=== PATIENT | female | born 1960 | race Caucasian/White ===

== ENCOUNTER 2016-12-13 11:47 | Emergency (ER) | payer MEDICAID ==
--- NOTE | 2016-12-13 14:01 | EDDOCDS ---
Nurse's Notes [facility] Name: Tierra Larsen Age: 56 yrs Sex: Female : 1960 Arrival Date: 12/13/2016 Time: 11:47 Bed TR8 Private MD: BILL GARCIAS Diagnosis: Strain of muscle and tendon of back wall of thorax-WITH HX OF T-SPINE FRACTURE Presentation: 12/13 12:04 Presenting complaint: Patient states: Has a fracture in low part of back which causes jo3 pain. Supposed to have surgery but hasn't scheduled yet. Having pain and the only thing that works is Vicodin. Acute neurological deficits are not present. Mechanism of Injury: No Mechanism of Injury. Adult Sepsis Screening: The patient does not have new or worsening altered mentation. Patient's respiratory rate is less than 22. Systolic blood pressure is greater than 100. Patient has a qSOFA score of 0- Negative Sepsis Screen. Suicide/Homicide risk assessment- the patient denies having any suicidal and/or homicidal ideations and does not present with any other emotional, behavioral or mental health complaints. Status: Patient is not a special services coordinator or dependent. Transition of care: patient was not received from another setting of care. 12:04 Acuity: MISTI Level 4 jo3 12:04 Method Of Arrival: Walkin/Carried/Asstd jo3 Triage Assessment: 12:08 General: Appears in no apparent distress, Behavior is appropriate for age, cooperative. jo3 Pain: Pain. Pain: Pain currently is 10 out of 10 on a pain scale. HIV screening NA for this visit Offered previously. The patient is triaged at the bedside. See Assessment in Nurses Notes section of ED record. Neurological: Level of Consciousness is awake, alert, Oriented to person, place, time. Respiratory: Airway is patent Respiratory effort is even, unlabored. Derm: Skin is pink, warm & dry. MATERIAL LIAISON: 12:08 post menopause jo3 Historical: - Allergies: no known allergies; - Home Meds: 1. albuterol sulfate 90 mcg/actuation Inhl HFAA 1 puff every 4 hours 2. Combivent 18-103 mcg/actuation Inhl aero 3. Lipitor 20 mg Oral tab 1 tab once daily - PMHx: Hypercholesterolemia; COPD; - PSHx: Tonsillectomy; Hip Arthroplasty, Right; Cystectomy; Carpal Tunnel Repair; - Social history: Smoking status: Patient states former smoker of tobacco. No barriers to communication noted, The patient speaks fluent North Korean, Speaks appropriately for age. - Family history: Not pertinent. - : The pt / caregiver states he / she is not on anticoagulants. Home medication list is obtained from the patient. - Exposure Risk Screening:: None identified. Screenin:55 Screening information is obtained from the patient. Fall risk: No risks identified. jo3 Assistance ADL's: requires no assistance with activities of daily living. Abuse/DV Screen: The patient / caregiver reports he/she is: not in a situation that causes fear, pain or injury. Nutritional screening: No deficits noted. Advance Directives: Currently, there is There is no active DNR order. home support is adequate. Assessment: 12:55 General: Appears in no apparent distress, comfortable, Behavior is appropriate for age, jo3 cooperative, pleasant. 13:00 Reassessment: Patient appears in no apparent distress at this time. pt states she is jo3 ready for DC. Medicaid cab requested.. 13:09 General: medicaid cab called per request.. ttb Vital Signs: 11:48 BP 116 / 65; Pulse 66; Resp 18 S; Temp 98.0(O); Pulse Ox 99% on R/A; Weight 68.04 kg gr2 (R); Height 4 ft. 7 in. (139.70 cm) (R); Pain 8/10; 11:48 Body Mass Index 34.86 (68.04 kg, 139.70 cm) gr2 Vitals: 11:48 Log In Time: December 13, 2016 at 11:48. gr2 ED Course: 11:48 Patient visited by Janett Garber. gr2 11:48 BILL GARCIAS is Private Physician. gr2 11:48 Patient moved to Waiting gr2 11:50 Patient visited by Janett Garber. gr2 11:50 Patient moved to Pre RCE gr2 12:06 Triage Initiated jo3 12:10 Patient visited by Megan Soto RN. jo3 12:24 Patient moved to Triage 2 srm 12:33 [facility]ev Mauro [facility]C [facility]. dt4 12:33 Jailene Meyer MD is Attending Physician. dt4 12:33 Patient visited by Bev Mauro PA-C. dt4 12:55 The patient / caregiver is instructed regarding the plan of care and ED course. jo3 12:55 No IV's were initiated during this patient's visit. No procedures done that require jo3 assistance. 13:00 Accompanied by Friend, Patient has correct armband on for positive identification. jo3 13:08 Patient moved to TR2 jb5 13:09 Patient visited by Carol Pandey, GABBI. ttb 13:50 Patient visited by Megan Soto RN. jo3 13:51 Patient name changed from Tierra\S\Marleny\S\Chava\S\ to Tierra\S\M\S\[place]. EDMS 13:53 [facility] Payment Agreement was scanned into [employer] and attached to record. lg 14:00 Patient moved to TR8 jb5 Order Results: There are currently no results for this order. Outcome: 12:54 Discharge ordered by Provider. dt4 12:55 Discharge Assessment: Patient awake, alert and oriented x 3. No cognitive and/or jo3 functional deficits noted. Patient verbalized understanding of disposition instructions. patient administered narcotics - no. The following High Risk Discharge criteria are identified: None. Condition: good. Discharge instructions given to patient, Instructed on discharge instructions, follow up and referral plans. medication usage, Demonstrated understanding of instructions, medications, Pt was receptive of discharge instructions/ teaching. Prescriptions given X 2. No special radiology studies were completed. Property sent home with patient. 14:01 Patient left the ED. jo3 Signatures: [facility] ED[facility] Marisol Barbour, Mike Vásquez RN, Reg Reg lg Elizabeth Richmond, WARRANT SERVER WARRANT SERVER jb5 Megan Soto RN RN joCarol Silva, GABBI SEO ttb Janett Garber gr2 Bev Mauro PA-C PA-C dt4 MTDD
--- NOTE | 2016-12-13 14:01 | EDDOCDS ---
Physician Documentation [facility] Name: Tierra Larsen Age: 56 yrs Sex: Female : 1960 Arrival Date: 12/13/2016 Time: 11:47 Bed TR8 Private MD: BILL GARCIAS Disposition: 12/13/16 12:54 Discharged to Home/Self Care. Impression: Strain of muscle and tendon of back wall of thorax - WITH HX OF T-SPINE FRACTURE. - Condition is Stable. - Discharge Instructions: Back Pain, Adult. - Prescriptions for [place] 5- 325 mg Oral Tablet - take 1 tablet by ORAL route every 6 hours As needed MDD: 4 tabs; 20 tablet. benzonatate 200 mg Oral Capsule - take 1 capsule by ORAL route 3 times per day As needed DO NOT CHEW; 30 capsule. - Medication Reconciliation, Local Pharmacy Hours form. - Follow up: Emergency Department; When: As needed; Reason: Worsening of conditions. Follow up: Private Physician; When: 4 - 5 days; Reason: Wound/Symptom Recheck, Recheck today's complaints, Continuance of care. - Problem is new. - Symptoms are unchanged. Historical: - Allergies: no known allergies; - Home Meds: 1. albuterol sulfate 90 mcg/actuation Inhl HFAA 1 puff every 4 hours 2. Combivent 18-103 mcg/actuation Inhl aero 3. Lipitor 20 mg Oral tab 1 tab once daily - PMHx: Hypercholesterolemia; COPD; - PSHx: Tonsillectomy; Hip Arthroplasty, Right; Cystectomy; Carpal Tunnel Repair; - Social history: Smoking status: Patient states former smoker of tobacco. No barriers to communication noted, The patient speaks fluent Malaysian, Speaks appropriately for age. - Family history: Not pertinent. - : The pt / caregiver states he / she is not on anticoagulants. Home medication list is obtained from the patient. - Exposure Risk Screening:: None identified. 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 7 in. (139.70 cm) (R); Pain 8/10; 11:48 Body Mass Index 34.86 (68.04 kg, 139.70 cm) gr2 MDM: 13:00 ED course: PT HAS DOCUMENTATION FROM S[facility] IN [place] STATING SHE HAS A VERTEBRAL dt4 FRACTURE FROM 2015. SHE WAS TOLD SHE NEEDED TO STOP SMOKING FOR THE SURGEONS TO PERFORM SURGERY. PT STATES OF NOVEMBER 17, 2016, SHE HAS QUIT SMOKING AND HAS NOT YET MADE AN APPT WITH THEM FOR PRE-OP TESTING AND SCHEDULING OF THE SURGERY. PT STATES SHE IS NOW COUGHING AND HE MID-BACK IS HURTING HER MORE THAN USUAL. NO NEW INJURY TO THIS AREA. NO RECENT ILLNESS WITH FEVER, RASH, N/V. . 13:01 Financial registration complete. 13:53 [facility] Payment Agreement was scanned into [employer] and attached to record. Signatures: Mike Humphrey, Kenny Reg Megan Montilla RN RN jo3 Bev Mauro, BRANDAN GIPSON dt4 The chart was reviewed and I authenticate all verbal orders and agree with the evaluation and treatment provided.Attachments: 13:53 [facility] Payment Agreement lg MTDD
--- NOTE | 2016-12-15 15:02 | EDDOCDS ---
Physician Documentation [facility] Name: Tierra Larsen Age: 56 yrs Sex: Female : 1960 Arrival Date: 12/13/2016 Time: 11:47 Bed TR8 Private MD: BILL GARCIAS Disposition: 12/13/16 12:54 Discharged to Home/Self Care. Impression: Strain of muscle and tendon of back wall of thorax - WITH HX OF T-SPINE FRACTURE. - Condition is Stable. - Discharge Instructions: Back Pain, Adult. - Prescriptions for [place] 5- 325 mg Oral Tablet - take 1 tablet by ORAL route every 6 hours As needed MDD: 4 tabs; 20 tablet. benzonatate 200 mg Oral Capsule - take 1 capsule by ORAL route 3 times per day As needed DO NOT CHEW; 30 capsule. - Medication Reconciliation, Local Pharmacy Hours form. - Follow up: Emergency Department; When: As needed; Reason: Worsening of conditions. Follow up: Private Physician; When: 4 - 5 days; Reason: Wound/Symptom Recheck, Recheck today's complaints, Continuance of care. - Problem is new. - Symptoms are unchanged. Historical: - Allergies: no known allergies; - Home Meds: 1. albuterol sulfate 90 mcg/actuation Inhl HFAA 1 puff every 4 hours 2. Combivent 18-103 mcg/actuation Inhl aero 3. Lipitor 20 mg Oral tab 1 tab once daily - PMHx: Hypercholesterolemia; COPD; - PSHx: Tonsillectomy; Hip Arthroplasty, Right; Cystectomy; Carpal Tunnel Repair; - Social history: Smoking status: Patient states former smoker of tobacco. No barriers to communication noted, The patient speaks fluent Martiniquais, Speaks appropriately for age. - Family history: Not pertinent. - : The pt / caregiver states he / she is not on anticoagulants. Home medication list is obtained from the patient. - Exposure Risk Screening:: None identified. 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 7 in. (139.70 cm) (R); Pain 8/10; 11:48 Body Mass Index 34.86 (68.04 kg, 139.70 cm) gr2 MDM: 13:00 ED course: PT HAS DOCUMENTATION FROM [facility] IN [place] STATING SHE HAS A VERTEBRAL dt4 FRACTURE FROM 2015. SHE WAS TOLD SHE NEEDED TO STOP SMOKING FOR THE SURGEONS TO PERFORM SURGERY. PT STATES OF NOVEMBER 17, 2016, SHE HAS QUIT SMOKING AND HAS NOT YET MADE AN APPT WITH THEM FOR PRE-OP TESTING AND SCHEDULING OF THE SURGERY. PT STATES SHE IS NOW COUGHING AND HE MID-BACK IS HURTING HER MORE THAN USUAL. NO NEW INJURY TO THIS AREA. NO RECENT ILLNESS WITH FEVER, RASH, N/V. . 13:01 Financial registration complete. 13:53 [facility] Payment Agreement was scanned into [id number] and attached to record. lg 12/14 07:54 T-Sheet-- Draft Copy was scanned into [employer] and attached to record. gb 07:55 Other: DRUG UTILIZATION REPORT was scanned into [employer] and attached to record. gb Signatures: Crissy Randall, Reg Reg gb Mike Humphrey, Reg Reg lg Megan Soto,RN RN jo3 Bev Mauro, PABlake PABlake dt4 The chart was reviewed and I authenticate all verbal orders and agree with the evaluation and treatment provided.Attachments: 12/13 13:53 [facility] Payment Agreement lg 12/14 07:54 T-Sheet-- Draft Copy gb Chart Complete MTDD
--- NOTE | 2016-12-15 15:02 | EDDOCDS ---
Physician Documentation [facility] Name: Tierra Larsen Age: 56 yrs Sex: Female : 1960 Arrival Date: 12/13/2016 Time: 11:47 Bed TR8 Private MD: BILL GARCIAS Disposition: 12/13/16 12:54 Discharged to Home/Self Care. Impression: Strain of muscle and tendon of back wall of thorax - WITH HX OF T-SPINE FRACTURE. - Condition is Stable. - Discharge Instructions: Back Pain, Adult. - Prescriptions for [place] 5- 325 mg Oral Tablet - take 1 tablet by ORAL route every 6 hours As needed MDD: 4 tabs; 20 tablet. benzonatate 200 mg Oral Capsule - take 1 capsule by ORAL route 3 times per day As needed DO NOT CHEW; 30 capsule. - Medication Reconciliation, Local Pharmacy Hours form. - Follow up: Emergency Department; When: As needed; Reason: Worsening of conditions. Follow up: Private Physician; When: 4 - 5 days; Reason: Wound/Symptom Recheck, Recheck today's complaints, Continuance of care. - Problem is new. - Symptoms are unchanged. Historical: - Allergies: no known allergies; - Home Meds: 1. albuterol sulfate 90 mcg/actuation Inhl HFAA 1 puff every 4 hours 2. Combivent 18-103 mcg/actuation Inhl aero 3. Lipitor 20 mg Oral tab 1 tab once daily - PMHx: Hypercholesterolemia; COPD; - PSHx: Tonsillectomy; Hip Arthroplasty, Right; Cystectomy; Carpal Tunnel Repair; - Social history: Smoking status: Patient states former smoker of tobacco. No barriers to communication noted, The patient speaks fluent Bhutanese, Speaks appropriately for age. - Family history: Not pertinent. - : The pt / caregiver states he / she is not on anticoagulants. Home medication list is obtained from the patient. - Exposure Risk Screening:: None identified. 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 7 in. (139.70 cm) (R); Pain 8/10; 11:48 Body Mass Index 34.86 (68.04 kg, 139.70 cm) gr2 MDM: 13:00 ED course: PT HAS DOCUMENTATION FROM S[facility] IN [place] STATING SHE HAS A VERTEBRAL dt4 FRACTURE FROM 2015. SHE WAS TOLD SHE NEEDED TO STOP SMOKING FOR THE SURGEONS TO PERFORM SURGERY. PT STATES OF NOVEMBER 17, 2016, SHE HAS QUIT SMOKING AND HAS NOT YET MADE AN APPT WITH THEM FOR PRE-OP TESTING AND SCHEDULING OF THE SURGERY. PT STATES SHE IS NOW COUGHING AND HE MID-BACK IS HURTING HER MORE THAN USUAL. NO NEW INJURY TO THIS AREA. NO RECENT ILLNESS WITH FEVER, RASH, N/V. . 13:01 Financial registration complete. 13:53 [facility] Payment Agreement was scanned into [employer] and attached to record. lg 12/14 07:54 T-Sheet-- Draft Copy was scanned into [employer] and attached to record. gb 07:55 Other: DRUG UTILIZATION REPORT was scanned into [employer] and attached to record. gb Signatures: Crissy Randall, Reg Reg gb Mike Humphrey, Reg Reg lg Megan Soto,RN RN jo3 Bev Mauro, PABlake PABlake dt4 The chart was reviewed and I authenticate all verbal orders and agree with the evaluation and treatment provided.Attachments: 12/13 13:53 [facility] Payment Agreement lg 12/14 07:54 T-Sheet-- Draft Copy gb Chart Complete MTDD
--- NOTE | 2016-12-15 15:02 | EDDOCDS ---
Nurse's Notes [facility] Name: Tierra Larsen Age: 56 yrs Sex: Female : 1960 Arrival Date: 12/13/2016 Time: 11:47 Bed TR8 Private MD: BILL GARCIAS Diagnosis: Strain of muscle and tendon of back wall of thorax-WITH HX OF T-SPINE FRACTURE Presentation: 12/13 12:04 Presenting complaint: Patient states: Has a fracture in low part of back which causes jo3 pain. Supposed to have surgery but hasn't scheduled yet. Having pain and the only thing that works is Vicodin. Acute neurological deficits are not present. Mechanism of Injury: No Mechanism of Injury. Adult Sepsis Screening: The patient does not have new or worsening altered mentation. Patient's respiratory rate is less than 22. Systolic blood pressure is greater than 100. Patient has a qSOFA score of 0- Negative Sepsis Screen. Suicide/Homicide risk assessment- the patient denies having any suicidal and/or homicidal ideations and does not present with any other emotional, behavioral or mental health complaints. Status: Patient is not a cashier self service gasoline or dependent. Transition of care: patient was not received from another setting of care. 12:04 Acuity: MISTI Level 4 jo3 12:04 Method Of Arrival: Walkin/Carried/Asstd jo3 Triage Assessment: 12:08 General: Appears in no apparent distress, Behavior is appropriate for age, cooperative. jo3 Pain: Pain. Pain: Pain currently is 10 out of 10 on a pain scale. HIV screening NA for this visit Offered previously. The patient is triaged at the bedside. See Assessment in Nurses Notes section of ED record. Neurological: Level of Consciousness is awake, alert, Oriented to person, place, time. Respiratory: Airway is patent Respiratory effort is even, unlabored. Derm: Skin is pink, warm & dry. 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 albuterol sulfate 90 mcg/actuation Inhl HFAA 1 puff every 4 hours 2. Combivent 18-103 mcg/actuation Inhl aero 3. Lipitor 20 mg Oral tab 1 tab once daily - PMHx: Hypercholesterolemia; COPD; - PSHx: Tonsillectomy; Hip Arthroplasty, Right; Cystectomy; Carpal Tunnel Repair; - Social history: Smoking status: Patient states former smoker of tobacco. No barriers to communication noted, The patient speaks fluent Chinese, Speaks appropriately for age. - Family history: Not pertinent. - : The pt / caregiver states he / she is not on anticoagulants. Home medication list is obtained from the patient. - Exposure Risk Screening:: None identified. Screenin:55 Screening information is obtained from the patient. Fall risk: No risks identified. jo3 Assistance ADL's: requires no assistance with activities of daily living. Abuse/DV Screen: The patient / caregiver reports he/she is: not in a situation that causes fear, pain or injury. Nutritional screening: No deficits noted. Advance Directives: Currently, there is There is no active DNR order. home support is adequate. Assessment: 12:55 General: Appears in no apparent distress, comfortable, Behavior is appropriate for age, jo3 cooperative, pleasant. 13:00 Reassessment: Patient appears in no apparent distress at this time. pt states she is jo3 ready for DC. Medicaid cab requested.. 13:09 General: medicaid cab called per request.. ttb Vital Signs: 11:48 BP 116 / 65; Pulse 66; Resp 18 S; Temp 98.0(O); Pulse Ox 99% on R/A; Weight 68.04 kg gr2 (R); Height 4 ft. 7 in. (139.70 cm) (R); Pain 8/10; 11:48 Body Mass Index 34.86 (68.04 kg, 139.70 cm) gr2 Vitals: 11:48 Log In Time: December 13, 2016 at 11:48. gr2 ED Course: 11:48 Patient visited by Janett Garber. gr2 11:48 BILL GARCIAS is Private Physician. gr2 11:48 Patient moved to Waiting gr2 11:50 Patient visited by Janett Garber. gr2 11:50 Patient moved to Pre RCE gr2 12:06 Triage Initiated jo3 12:10 Patient visited by Megan Soto RN. jo3 12:24 Patient moved to Triage 2 srm 12:33 Bev Mauro PA-C is [facility]. dt4 12:33 Jailene Meyer MD is Attending Physician. dt4 12:33 Patient visited by Bev Mauro PA-C. dt4 12:55 The patient / caregiver is instructed regarding the plan of care and ED course. jo3 12:55 No IV's were initiated during this patient's visit. No procedures done that require jo3 assistance. 13:00 Accompanied by Friend, Patient has correct armband on for positive identification. jo3 13:08 Patient moved to TR2 jb5 13:09 Patient visited by Carol Pandey RN. ttb 13:50 Patient visited by Megan Soto RN. jo3 13:51 Patient name changed from Tierra\S\Marleny\S\Chava\S\ to Tierra\S\M\S\[place]. EDMS 13:53 [facility] Payment Agreement was scanned into [employer] and attached to record. lg 14:00 Patient moved to TR8 [facility] 12/14 07:54 T-Sheet-- Draft Copy was scanned into [employer] and attached to record. gb 07:55 Other: DRUG UTILIZATION REPORT was scanned into [employer] and attached to record. gb Order Results: There are currently no results for this order. Outcome: 12/13 12:54 Discharge ordered by Provider. dt4 12:55 Discharge Assessment: Patient awake, alert and oriented x 3. No cognitive and/or jo3 functional deficits noted. Patient verbalized understanding of disposition instructions. patient administered narcotics - no. The following High Risk Discharge criteria are identified: None. Condition: good. Discharge instructions given to patient, Instructed on discharge instructions, follow up and referral plans. medication usage, Demonstrated understanding of instructions, medications, Pt was receptive of discharge instructions/ teaching. Prescriptions given X 2. No special radiology studies were completed. Property sent home with patient. 14:01 Patient left the ED. jo3 Signatures: Dispatcher [employer] EDMS Marisol Barbour RN RN [facility] Crissy Randall, Reg Reg gb Mike Humphrey, Reg Reg lg Elizabeth Richmond, FUNCTIONAL TESTER FUNCTIONAL TESTER jb5 Megan Soto RN RN jo3 Carol Pandey, GABBI RN ttb Janett Garber gr2 Bev Mauro PA-C PA-C dt4 Chart Complete MTDD
== END 2016-12-13 14:01 | disposition home or self-care (01) ==
LOC: M ED 11:47
DX: M54.9 Dorsalgia, unspecified (principal); Z87.311 Personal history of (healed) other pathological fracture; E78.00 Pure hypercholesterolemia, unspecified; J44.9 Chronic obstructive pulmonary disease, unspecified; Z96.641 Presence of right artificial hip joint; Z87.891 Personal history of nicotine dependence; Z79.899 Other long term (current) drug therapy

== ENCOUNTER → 2017-01-27 | Outpatient (CLI) | payer MEDICAID ==
--- NOTE | 2017-01-27 11:14 | REPMRS ---
Patient History The patient states she has not had a clinical breast exam in over a year. Patient is postmenopausal and is nulliparous. Family history of unknown cancer in father at age 50 or over and unknown cancer in paternal grandfather at age 50 or over. Digital Mammo Screening Bilat: January 27, 2017 - Exam #: [id number] Bilateral CC and MLO view(s) were taken. Technologist: Megan Lugo, Technologist Prior study comparison: September 25, 2015, bilateral digital mammo screening bilat performed at [facility]. September 16, 2014, bilateral digital mammo screening bilat performed at [facility]. 2002, bilateral mammogram performed at [facility]. FINDINGS: The breast tissue is almost entirely fat. There has been no change in the appearance of the mammogram from the prior studies. There is no interval development of dominant mass, architectural distortion, or clustered microcalcification typical of malignancy. ASSESSMENT: BI-RADS/ACR category 1 mammogram. Negative. Recommendation Routine screening mammogram of both breasts in 1 year (for women over age 40). This mammogram was interpreted with the aid of an FDA-approved computer-aided dectection system. Electronically Signed By: Yazan Barboza MD 01/27/17 [id number]
== END ==
LOC: M RAD 09:22
PROVIDERS: ATTEND Internal Medicine
DX: Z12.4 Encounter for screening for malignant neoplasm of cervix (principal)

== ENCOUNTER 2017-03-13 09:32 | Outpatient (RCR) | payer MEDICAID | END 2017-03-16 | LOC: M PT 09:32 | PROVIDERS: ATTEND Orthopaedic Surgery | DX: Z51.89 Encounter for other specified aftercare (principal); M54.5 Low back pain ==

== ENCOUNTER → 2017-03-27 | Outpatient (CLI) | payer MEDICAID ==
[~2017-03-27] MED LIST: diazePAM 5 MG TAB As Ordered ONE; oxyCODONE 5MG TAB As Ordered ONE
--- NOTE | 2017-04-09 02:15 | ECWPNPC ---
PATIENT NAME: LORIE GONZALES : 1960 GENDER: FEMALE VISIT DATE: 03/27/2017 DISCHARGE DATE: 03/27/17 1433 VISIT LOCKED DATE TIME: PHYSICIAN: GUNNER ISRAEL RESOURCE: GUNNER ISRAEL REASON FOR APPOINTMENT 1. BACK HISTORY OF PRESENT ILLNESS FALL RISK SCREENING: SCREENING :NO FALLS IN THE PAST YEAR 56 YEAR OLD FEMALE PATIENT WITH HISTORY OF CHRONIC BACK PAIN. PATIENT DESCRIBES THE PAIN HAVING IT ALL THE TIME WITH A PAIN SCORE OF 9/10 ON TODAY'S VISIT. PATIENT REPORTS THAT SHE ALWAYS HAD BACK PAIN SINCE SHE WAS YOUNG, AND SHE GOT OLDER THE PAIN WORSEN. PATIENT STATES THAT IN 2006 SHE HAD A HIP REPLACEMENT. PATIENT STATES THAT SHE HAS NOT HAD ANY BACK SURGERIES. PATIENT REPORTS THAT WORKING, BENDING, AND STANDING CAUSES HER PAIN TO GO UP. PATIENT STATES THAT SHE HAS RADIATING PAIN THAT GOES DOWN THE FRONT PART OF HER LEG. PATIENT DENIES UNEXPLAINABLE WEIGHT LOSS, FEVER, CHILLS, NEW CHANGES ON HER URINARY OR BOWEL CONTROL. PAIN SCREENING: PATIENT HAS A COMPLAINT OF ACUTE OR CHRONIC PAIN :YES CURRENT MEDICATIONS TAKING ATORVASTATIN CALCIUM 20 MG TABLET 1 TABLET ORALLY ONCE A DAY TAKING ALBUTEROL SULFATE HFA 108 (90 BASE) MCG/ACT AEROSOL SOLUTION 2 PUFFS NEEDED INHALATION EVERY 4 HRS TAKING COMBIVENT MEDICATION LIST REVIEWED AND RECONCILED WITH THE PATIENT PAST MEDICAL HISTORY HIGH CHOLESTEROL KIDNEY STONES ARTHRITIS BACK PAIN BREAST FEEDING: YES ALLERGIES N.K.D.A. SURGICAL HISTORY RIGHT HIP REPLACEMENT 2006 KIDNEY STONES 1998 APPENDECTOMY TEENAGER ? OVARIAN CYSTECTOMY RIGHT 1997 FAMILY HISTORY FATHER: 63 YRS, DIAGNOSED WITH CANCER MOTHER: ALIVE 78 YRS SIBLINGS: ALIVE SOCIAL HISTORY GENERAL: TOBACCO USE ARE YOU A:NONSMOKER RECREATIONAL DRUG USE: YES DRUG USE?YES CAFFEINE: YES CAFFEINE USE?YES HOW OFTEN AND HOW MUCH? 6-7 CUPS [facility] DIRECTIVES HEALTH CARE PROXY?NO WOULD YOU LIKE MORE INFORMATION?NO DO YOU HAVE A DNR?NO WOULD YOU LIKE MORE INFORMATION?NO LIVING WILL?NO WOULD YOU LIKE MORE INFORMATION?NO POWER OF COURTESY CAR DRIVER?NO WOULD YOU LIKE MORE INFORMATION?NO PT STATES SHE SMOKES MARIJUANNA IN PRIVATE TO HELP WITH PAIN. HOSPITALIZATION/MAJOR DIAGNOSTIC PROCEDURE NO HOSPITALIZATION HISTORY. REVIEW OF SYSTEMS CONSTITUTIONAL: ANY CHANGE IN YOUR MEDICAL CONDITION? NO . CHILLS NO . FEVER NO . INFECTION: DO YOU HAVE NEW INFECTIONS? NO . DO YOU HAVE HISTORY OF MRSA? NO . MUSCULOSKELETAL: ANY NEW PATTERNS OF PAIN OR NUMBNESS? YES, LEFT KNEE PAIN AND NUMBNESS. LOWER BACK PAIN . SYTEMIC LUPUS NO . GASTROENTEROLOGY: ANY NEW CHANGE IN BOWEL CONTROL? NO . BARRETTS ESOPHAGUS NO . CIRRHOSIS NO . HEPATITIS NO . LIVER FAILURE NO . ACID REFLUX NO . UNEXPLAINED WEIGHT LOSS NO . GENITOURINARY: ANY NEW CHANGE IN BLADDER CONTROL? NO . IS THERE A CHANCE YOU COULD BE ? NO . HEMATOLOGY/LYMPH: DO YOU TAKE ANY BLOOD THINNERS? (FOR EXAMPLE- COUMADIN, PLAVIX, AGGRENOX, PLATEL, PRADAXA, OR XARELTO) NO . WHEN WAS YOUR LAST DOSE? DATE: TIME: . LOW PLATELET COUNT NO . SICKLE CELL DISEASE NO . VON WILLIEBRANDS NO . FACTOR V LEIDEN NO . THALLASEMIA NO . ANEMIA NO . EASY BRUISING NO . NEUROLOGY: HAVE YOU FALLEN IN THE PAST 6 MONTHS? NO . ANY NEW EXTREMITY NUMBNESS OR WEAKNESS? YES, NUMBNESS TO LEFT KNEE . HEAD INJURY NO . DEMENTIA NO . CEREBRAL PALSY NO . MULTIPLE SCLEROSIS NO . DIZZINESS NO . HEADACHE NO . STROKES NO . VERTIGO NO . CARDIOLOGY: DO YOU HAVE A PACEMAKER OR DEFIBRILLATOR? NO . ANGINA NO . HEART ATTACK NO . HEART SURGERY NO . CONGESTIVE HEART FAILURE/FLUID OVERLOAD NO . CHEST PAIN NO . HIGH BLOOD PRESSURE NO . IRREGULAR HEART BEAT NO . RESPIRATORY: HAVE YOU BEEN SICK IN THE PAST WEEK? NO . FEVER NO . FLU LIKE SYMPTOMS? NO . CPAP NO . BYPAP NO . ASTHMA NO . EMPHYSEMA NO . CHRONIC LUNG DISEASES NO . SHORTNESS OF BREATH ON EXERTION NO . COUGH NO . SNORING NO . INTEGUMENTARY: DO YOU HAVE ANY RASHES OR OPEN SORES? NO . ALLERGIC/IMMUNO: ARE YOU ALLERGIC TO SHELLFISH OR IV DYE? NO . ANY NEW ALLERGIES? NO . PSYCHIATRIC: DO YOU HAVE THOUGHTS OF HURTING YOURSELF OR SOMEONE ELSE? NO . ARE YOU ABUSED, NEGLECTED, OR IN AN UNSAFE ENVIRONMENT? NO . ENDOCRINOLOGY: ARE YOU DIABETIC? NO . THYROID DISORDER NO . OTHER: DO YOU NEED ANY PRESCRIPTIONS? NO . IF YES, PLEASE LIST: ____ . ANY NEW PROBLEMS WITH YOUR MEDICATIONS? NO . WHEN DID YOU LAST EAT? ____ . WHEN DID YOU LAST DRINK? ____ . WHAT DID YOU LAST DRINK? ____ . NAME OF PERSON DRIVING YOU HOME? ____ . DO YOU HAVE ANY OTHER QUESTIONS OR CONCERNS NO . REVIEWED BY: PROVIDER: GUNNER ISRAEL MD . VITAL SIGNS WT 160.4 LBS, HT 57 IN, BMI 34.71 INDEX, BP 136/76 MM HG, HR 52 /MIN, RR 16 /MIN, TEMP 97.4 F, OXYGEN SAT % 96%, SAFE IN ENV? (Y/N) Y, REVIEWED BY: EM. EXAMINATION : PATIENT IS ALERT O X 3 AND COOPERATIVE. THERE IS TENDERNESS IN THE LOW BACK PARASPINAL MUSCLE GROUP WITH BANDS OF TISSUES, RESTRICTION OF MOVEMENT, AND PRESENCE OF TRIGGER POINTS. MRI OF THE LUMBAR SPINE DONE ON 06/06/2016 SHOWS DISC PROTRUSION AND DISC BULGES AT MULTIPLE LEVELS. ASSESSMENTS MYALGIA - M79.1 (PRIMARY) TREATMENT MYALGIA NOTES: WE DISCUSSED SEVERAL ISSUES WITH MS. GONZALES'S PAIN MANAGEMENT CASE. AT THIS TIME THE PATIENT WILL CONTINUE ON THE SAME MEDICATION REGIMEN BEFORE. AFTER EXAMINING THE PATIENT IS A GOOD CANDIDATE FOR A TPI IN THE LOW BACK. WE DISCUSSED THE RISK, BENEFITS, AND ALTERNATIVES AND THE PATIENT WOULD LIKE TO PROCEED. PATIENT WILL BE BOOKED PENDING APPROVAL. PATIENT WILL FOLLOW UP WITH ME IN 4 WEEKS. INSTRUCTIONS WERE GIVEN, QUESTIONS WERE ANSWERED, PATIENT REPORTS UNDERSTANDING AND AGREES WITH THE PLAN. I, JAVIER LAM, DOCUMENTED THE ABOVE INFORMATION ACTING A SCRIBE FOR DR. ISRAEL. I HAVE REVIEWED THE ABOVE DOCUMENT, WRITTEN BY JAVIER SAAVEDRA AND I VERIFY THAT IT IS ACCURATE. DR. BEAL -THANK YOU FOR YOUR KIND REFERRAL OF MS. GONZALES. IF YOU WOULD LIKE TO DISCUSS HER CASE WITH ME, PLEASE CALL ME AT THE PAIN CENTER AT [phone]. OTHERS NOTES: TRIGGER POINT INJECTION MATERIAL WAS PRINTED,TRIGGER POINT INJECTION MATERIAL WAS PRINTED. PREVENTIVE MEDICINE PAIN CLINIC TEACHING: PROCEDURE TEACHING PT ALERT AND ORIENTED. PT ORIENTED TO PAIN CLINIC AND PLAN OF CARE. PROCEDURE CODES FA211 ESTABILISHED PATIENT [facility] FACILITY CHARGE G8730 PAIN ASSESS POS TOOL F/U PLAN DOC G8427 DOC MEDS VERIFIED W/PT OR RE DISPOSITION & COMMUNICATION FOLLOW UP 4 WEEKS ELECTRONICALLY SIGNED BY GUNNER ISRAEL MD ON 04/08/2017 AT 06:03 PM EDT DISCLAIMER : THIS IS A VISIT SUMMARY EXTRACTED FROM THE [employer] CHART. IT IS NOT A COPY OF THE [employer] PROGRESS NOTE. MTDD
== END ==
LOC: M PAIN 12:40
PROVIDERS: ATTEND Anesthesiology
DX: G89.29 Other chronic pain (principal); M79.1 Myalgia; M54.9 Dorsalgia, unspecified; E78.00 Pure hypercholesterolemia, unspecified; M19.90 Unspecified osteoarthritis, unspecified site; R20.2 Paresthesia of skin; Z79.899 Other long term (current) drug therapy

== ENCOUNTER → 2017-03-28 | Outpatient (CLI) | payer MEDICAID ==
[~2017-03-28] MED LIST changes: +BUPIVACAINE HCL 0.25% 10 ML VIAL As Ordered ONE; +BUPIVACAINE HCL 0.25% 30 ML VIAL As Ordered ONE; +TRIAMCINOLONE ACETONIDE SUSP 40 MG/ML VIAL (J3301) As Ordered ONE; -diazePAM 5 MG TAB As Ordered ONE; -oxyCODONE 5MG TAB As Ordered ONE
--- NOTE | 2017-04-05 23:22 | ECWPNPC ---
PATIENT NAME: LORIE GONZALES : 1960 GENDER: FEMALE VISIT DATE: 03/28/2017 DISCHARGE DATE: 03/28/17 1603 VISIT LOCKED DATE TIME: PHYSICIAN: GUNNER ISRAEL RESOURCE: GUNNER ISRAEL REASON FOR APPOINTMENT 1. TPI HISTORY OF PRESENT ILLNESS HISTORY OF PRESENT ILLNESS: PAIN THE PATIENT DESCRIBES THE PAIN... FALL RISK SCREENING: SCREENING :NO FALLS IN THE PAST YEAR CURRENT MEDICATIONS TAKING ATORVASTATIN CALCIUM 20 MG TABLET 1 TABLET ORALLY ONCE A DAY, NOTES: 03-27-17 0800 TAKING ALBUTEROL SULFATE HFA 108 (90 BASE) MCG/ACT AEROSOL SOLUTION 2 PUFFS NEEDED INHALATION EVERY 4 HRS, NOTES: NONE RECENT TAKING COMBIVENT 18-103 MCG/ACT AEROSOL INHALATION 2-3 TIMES DAILY NEDED, NOTES: NONE RECENT MEDICATION LIST REVIEWED AND RECONCILED WITH THE PATIENT PAST MEDICAL HISTORY HIGH CHOLESTEROL KIDNEY STONES ARTHRITIS BACK PAIN ALLERGIES N.K.D.A. REVIEW OF SYSTEMS CONSTITUTIONAL: ANY CHANGE IN YOUR MEDICAL CONDITION? NO . CHILLS NO . FEVER NO . INFECTION: DO YOU HAVE NEW INFECTIONS? NO . DO YOU HAVE HISTORY OF MRSA? NO . MUSCULOSKELETAL: ANY NEW PATTERNS OF PAIN OR NUMBNESS? NO . GASTROENTEROLOGY: ANY NEW CHANGE IN BOWEL CONTROL? NO . GENITOURINARY: ANY NEW CHANGE IN BLADDER CONTROL? NO . IS THERE A CHANCE YOU COULD BE ? NO . HEMATOLOGY/LYMPH: DO YOU TAKE ANY BLOOD THINNERS? (FOR EXAMPLE- COUMADIN, PLAVIX, AGGRENOX, PLATEL, PRADAXA, OR XARELTO) NO . WHEN WAS YOUR LAST DOSE? DATE: TIME: . NEUROLOGY: HAVE YOU FALLEN IN THE PAST 6 MONTHS? NO . ANY NEW EXTREMITY NUMBNESS OR WEAKNESS? NO . CARDIOLOGY: DO YOU HAVE A PACEMAKER OR DEFIBRILLATOR? NO . RESPIRATORY: HAVE YOU BEEN SICK IN THE PAST WEEK? NO . FEVER NO . FLU LIKE SYMPTOMS? NO . COUGH NO . INTEGUMENTARY: DO YOU HAVE ANY RASHES OR OPEN SORES? NO . ALLERGIC/IMMUNO: ARE YOU ALLERGIC TO SHELLFISH OR IV DYE? NO . ANY NEW ALLERGIES? NO . PSYCHIATRIC: DO YOU HAVE THOUGHTS OF HURTING YOURSELF OR SOMEONE ELSE? NO . ARE YOU ABUSED, NEGLECTED, OR IN AN UNSAFE ENVIRONMENT? NO . ENDOCRINOLOGY: ARE YOU DIABETIC? NO . OTHER: DO YOU NEED ANY PRESCRIPTIONS? NO . IF YES, PLEASE LIST: ____ . ANY NEW PROBLEMS WITH YOUR MEDICATIONS? NO . WHEN DID YOU LAST EAT? 03-27-17 7:30 PM . WHEN DID YOU LAST DRINK? 03-28-17 1115 AM . WHAT DID YOU LAST DRINK? BLACK TEA . NAME OF PERSON DRIVING YOU HOME? WALKING HOME . DO YOU HAVE ANY OTHER QUESTIONS OR CONCERNS NO . REVIEWED BY: PROVIDER: . VITAL SIGNS WT 160.0 LBS, HT 57 IN, BMI 34.62 INDEX, BP 133/78 MM HG, HR 69 /MIN, RR 16 /MIN, TEMP 98.3 F, OXYGEN SAT % 98%, NA INITIALS TL 1334, REVIEWED BY: CM. ASSESSMENTS MYALGIA - M79.1 (PRIMARY) PROCEDURES PN TRIGGER POINT INJECTION WITH STEROIDS PRE PROCEDURE DIAGNOSIS 1. MYALGIA 2. PAIN AT BILATERAL LOWER BACK AREA POST PROCEDURE DIAGNOSIS 1. MYALGIA 2. PAIN AT BILATERAL LOWER BACK AREA PROCEDURE TRIGGER POINT INJECTION AT BILATERAL LOWER BACK AREA SURGEON DR. GUNNER ISRAEL KETTLE GIRL NONE ANESTHESIA LOCAL PRE PROCEDURE NOTE THE PATIENT HAS A HISTORY OF CHRONIC PAIN AT THE RIGHT AND LEFT LOW BACK AREA. I EVALUATE THE PATIENT AND REVIEWED THE CHART. THERE IS EVIDENCE OF BANDS OF TISSUE WITH RESTRICTION OF MOVEMENT AND PRESENCE OF TRIGGER POINT AT THE AFFECTED AREA. I WENT OVER THE RISKS, ALTERNATIVES, AND BENEFITS ASSOCIATED WITH THIS PROCEDURE. THE PATIENT WOULD LIKE TO PROCEED AND GIVE CONSENT TO PERFORMED THE PROCEDURE. THE PATIENT DENIES UNEXPLAINABLE WEIGHT LOSS, FEVER, CHILLS, OR NEW CHANGES IN URINARY OR BOWEL CONTROL DESCRIPTION OF PROCEDURE THE PATIENT WAS BROUGHT TO THE PROCEDURE ROOM AND PLACED IN THE SITTING POSITION. THE AREA WAS CLEANED WITH ALCOHOL. THE PROCEDURE WAS DONE USING ASEPTIC STERILE TECHNIQUE. I CHECKED LATERALITY AND THE LEVEL WHERE THE PROCEDURE WAS GOING TO BE PERFORMED WITH THE PATIENT AND THE SUPPORTING STAFF AT THE MOMENT OF THE TIME OUT IN THE PROCEDURE ROOM. USING A 25-GAUGE NEEDLE, TRIGGER POINTS WERE INJECTED AT THE RIGHT AND LEFT LOW BACK AREA WITH A TOTAL OF 40 ML OF BUPIVACAINE 0.25% AND KENALOG 40 MG. THERE WAS NO EVIDENCE OF BLOOD, PARESTHESIA OR CEREBROSPINAL FLUID DURING THE PROCEDURE. THE PATIENT WAS SENT TO THE RECOVERY ROOM. THE PATIENT WAS MOVING THE EXTREMITIES AND DOING WELL. THERE WAS NO COMPLICATION DURING THE PROCEDURE POST PROCEDURE NOTE THE PATIENT WILL BE SEEN IN A FOLLOW UP IN THE NEXT FEW WEEKS. INSTRUCTIONS WERE GIVEN, QUESTIONS WERE ANSWERED, AND THE PATIENT EXPRESSED UNDERSTANDING AND AGREES WITH THE PLAN. I, JAVIER LAM, DOCUMENTED THE ABOVE INFORMATION ACTING A SCRIBE FOR DR. ISRAEL. I HAVE REVIEWED THE ABOVE DOCUMENT, WRITTEN BY JAVIER LAM SCRIBJason AND I VERIFY THAT IT IS ACCURATE PROCEDURE CODES 32554 INJ TRIGGER POINT 1/2 MUSCL DISPOSITION & COMMUNICATION FOLLOW UP 3 WEEKS ELECTRONICALLY SIGNED BY GUNNER ISRAEL MD ON 04/05/2017 AT 07:13 PM EDT DISCLAIMER : THIS IS A VISIT SUMMARY EXTRACTED FROM THE [employer] CHART. IT IS NOT A COPY OF THE [employer] PROGRESS NOTE. ADELE
== END ==
LOC: M PAIN 13:20
PROVIDERS: ATTEND Anesthesiology
DX: M79.1 Myalgia (principal); M54.5 Low back pain; G89.29 Other chronic pain; Z79.899 Other long term (current) drug therapy
CPT/HCPCS: 20552; J3301

== ENCOUNTER 2017-04-15 10:45 | Outpatient (RCR) | payer MEDICAID | END 2017-04-16 | LOC: M PT 10:45 | PROVIDERS: ATTEND Orthopaedic Surgery | DX: Z51.89 Encounter for other specified aftercare (principal); M54.5 Low back pain ==

== ENCOUNTER → 2017-05-15 | Outpatient (CLI) | payer MEDICAID ==
--- NOTE | 2017-05-26 00:03 | ECWPNPC ---
PATIENT NAME: LORIE GONZALES : 1960 GENDER: FEMALE VISIT DATE: 05/15/2017 DISCHARGE DATE: 05/15/17 1425 VISIT LOCKED DATE TIME: PHYSICIAN: GUNNER ISREAL RESOURCE: GUNNER ISRAEL REASON FOR APPOINTMENT 1. LOW BACK PAIN HISTORY OF PRESENT ILLNESS GENERAL: 56 YEAR OLD FEMALE PATIENT WITH HISTORY OF CHRONIC LOW BACK PAIN. PATIENT DESCRIBES THE PAIN TENDER WITH A PAIN SCORE OF 1-2/10. PATIENT RECEIVED TRIGGER POINT INJECTIONS ON 03/28/17 AND STATES THAT SHE HAS HAD OVER 50% REDUCTION IN PAIN SINCE THE INJECTION WITH INCREASED MOBILITY AND FUNCTIONALITY. MRS. GONZALES STATES THAT ANY TYPE OF ACTIVITY INCLUDING WALKING, STANDING, AND SITTING INCREASES THE PAIN IN HER LOWER BACK. PATIENT DENIES UNEXPLAINABLE WEIGHT LOSS, FEVER, CHILLS, NEW CHANGES ON HER URINARY OR BOWEL CONTROL. HISTORY OF PRESENT ILLNESS: PAIN THE PATIENT DESCRIBES THE PAIN... FALL RISK SCREENING: SCREENING :NO FALLS IN THE PAST YEAR CURRENT MEDICATIONS TAKING ATORVASTATIN CALCIUM 20 MG TABLET 1 TABLET ORALLY ONCE A DAY TAKING ALBUTEROL SULFATE HFA 108 (90 BASE) MCG/ACT AEROSOL SOLUTION 2 PUFFS NEEDED INHALATION EVERY 4 HRS TAKING COMBIVENT 18-103 MCG/ACT AEROSOL INHALATION 2-3 TIMES DAILY NEDED TAKING CLARITIN 10 MG TABLET 1 TABLET ORALLY ONCE A DAY MEDICATION LIST REVIEWED AND RECONCILED WITH THE PATIENT PAST MEDICAL HISTORY HIGH CHOLESTEROL KIDNEY STONES ARTHRITIS BACK PAIN ALLERGIES N.K.D.A. SOCIAL HISTORY GENERAL: TOBACCO USE ARE YOU A:NONSMOKER RECREATIONAL DRUG USE: YES DRUG USE?YES CAFFEINE: YES CAFFEINE USE?YES HOW OFTEN AND HOW MUCH? 6-7 CUPS [id number] PFS, CLERGY, PUBLIC HEALTH REFERRALS PFS REFERRAL NEEDED?NO CLERGY REFERRAL NEEDED?NO PUBLIC HEALTH REFERRAL NEEDED?NO HAS THE PATIENT BEEN EDUCATED REGARDING HIS/HER PLAN OF CARE?YES HAS THE PATIENT BEEN EDUCATED REGARDING PAIN, THE RISK FOR PAIN, THE IMPORTANCE OF EFFECTIVE PAIN MANAGEMENT, AND THE PAIN ASSESSMENT PROCESS?YES ADVANCE DIRECTIVES HEALTH CARE PROXY?NO WOULD YOU LIKE MORE INFORMATION?NO DO YOU HAVE A DNR?NO WOULD YOU LIKE MORE INFORMATION?NO LIVING WILL?NO WOULD YOU LIKE MORE INFORMATION?NO POWER OF DELIVERY SALES WORKER?NO WOULD YOU LIKE MORE INFORMATION?NO PT STATES SHE SMOKES MARIJUANNA IN PRIVATE TO HELP WITH PAIN. REVIEW OF SYSTEMS REVIEWED BY: PROVIDER: GUNNER ISAREL MD . CONSTITUTIONAL: ANY CHANGE IN YOUR MEDICAL CONDITION? NO . CHILLS NO . FEVER NO . INFECTION: DO YOU HAVE NEW INFECTIONS? NO . DO YOU HAVE HISTORY OF MRSA? NO . MUSCULOSKELETAL: ANY NEW PATTERNS OF PAIN OR NUMBNESS? NO . GASTROENTEROLOGY: ANY NEW CHANGE IN BOWEL CONTROL? NO . GENITOURINARY: ANY NEW CHANGE IN BLADDER CONTROL? NO . IS THERE A CHANCE YOU COULD BE ? NO . HEMATOLOGY/LYMPH: DO YOU TAKE ANY BLOOD THINNERS? (FOR EXAMPLE- COUMADIN, PLAVIX, AGGRENOX, PLATEL, PRADAXA, OR XARELTO) NO . WHEN WAS YOUR LAST DOSE? DATE: TIME: . NEUROLOGY: HAVE YOU FALLEN IN THE PAST 6 MONTHS? NO . ANY NEW EXTREMITY NUMBNESS OR WEAKNESS? NO . CARDIOLOGY: DO YOU HAVE A PACEMAKER OR DEFIBRILLATOR? NO . RESPIRATORY: HAVE YOU BEEN SICK IN THE PAST WEEK? NO . FEVER NO . FLU LIKE SYMPTOMS? NO . COUGH NO . INTEGUMENTARY: DO YOU HAVE ANY RASHES OR OPEN SORES? NO . ALLERGIC/IMMUNO: ARE YOU ALLERGIC TO SHELLFISH OR IV DYE? NO . ANY NEW ALLERGIES? NO . PSYCHIATRIC: DO YOU HAVE THOUGHTS OF HURTING YOURSELF OR SOMEONE ELSE? NO . ARE YOU ABUSED, NEGLECTED, OR IN AN UNSAFE ENVIRONMENT? NO . ENDOCRINOLOGY: ARE YOU DIABETIC? NO . OTHER: DO YOU NEED ANY PRESCRIPTIONS? NO . IF YES, PLEASE LIST: ____ . ANY NEW PROBLEMS WITH YOUR MEDICATIONS? NO . WHEN DID YOU LAST EAT? ____ . WHEN DID YOU LAST DRINK? ____ . WHAT DID YOU LAST DRINK? ____ . NAME OF PERSON DRIVING YOU HOME? ____ . DO YOU HAVE ANY OTHER QUESTIONS OR CONCERNS NO . VITAL SIGNS WT 156.2 LBS, HT 57 IN, BMI 33.80 INDEX, BP 137/74 MM HG, HR 72 /MIN, RR 16 /MIN, TEMP 97.1 F, OXYGEN SAT % 96%, NA INITIALS TL 1345, REVIEWED BY: CS. EXAMINATION GENERAL: PATIENT IS ALERT O X 3 AND COOPERATIVE. THERE IS TENDERNESS IN THE LOW BACK PARASPINAL MUSCLE GROUP WITH BANDS OF TISSUES, RESTRICTION OF MOVEMENT, AND PRESENCE OF TRIGGER POINTS. MRI OF THE LUMBAR SPINE DONE ON 06/06/2016 SHOWS DISC PROTRUSION AND DISC BULGES AT MULTIPLE LEVELS. ASSESSMENTS INTERVERTEBRAL DISC DISORDERS WITH RADICULOPATHY, LUMBAR REGION - M51.16 (PRIMARY) INTERVERTEBRAL DISC DISORDERS WITH RADICULOPATHY, LUMBOSACRAL REGION - M51.17 MYALGIA - M79.1 TREATMENT INTERVERTEBRAL DISC DISORDERS WITH RADICULOPATHY, LUMBAR REGION NOTES: WE DISCUSSED SEVERAL ISSUES WITH MRS. GONZALES'S PAIN MANAGEMENT CASE. AT THIS TIME THE PATIENT IS DOING VERY WELL FROM THE TRIGGER POINT INJECTIONS SHE HAD DONE ON 03/28/17. PATIENT REPORTS HAVING OVER 50% RELIEF FROM THE PAIN AND AN INCREASE IN MOBILITY AND FUNCTIONALITY FROM THE INJECTION. AT THIS TIME THE PATIENT DOES NOT WANT TO MOVE FORWARD WITH ANY INTERVENTIONS AT THIS TIME DUE TO DOING SO WELL. PATIENT WILL RETURN TO THE CLINIC IN 6 WEEKS BUT WAS ADVISED TO CALL IF THE PAIN SIGNIFICANTLY WORSENS. INSTRUCTIONS WERE GIVEN, QUESTIONS WERE ANSWERED, PATIENT REPORTS UNDERSTANDING AND AGREES WITH THE PLAN. I, BILL MORAN, DOCUMENTED THE ABOVE INFORMATION ACTING A SCRIBE FOR DR. ISRAEL. I HAVE REVIEWED THE ABOVE DOCUMENT, WRITTEN BY BILL SAAVEDRA AND I VERIFY THAT IT IS ACCURATE. PROCEDURE CODES FA211 ESTABILISHED PATIENT [facility] FACILITY CHARGE G8427 DOC MEDS VERIFIED W/PT OR RE G8730 PAIN ASSESS POS TOOL F/U PLAN DOC DISPOSITION & COMMUNICATION FOLLOW UP 6 WEEKS ELECTRONICALLY SIGNED BY GUNNER ISRAEL MD ON 05/25/2017 AT 07:55 PM EDT DISCLAIMER : THIS IS A VISIT SUMMARY EXTRACTED FROM THE [employer] CHART. IT IS NOT A COPY OF THE [employer] PROGRESS NOTE. ADELE
== END ==
LOC: M PAIN 13:40
PROVIDERS: ATTEND Anesthesiology
DX: M51.16 Intervertebral disc disorders with radiculopathy, lumbar region (principal); M51.17 Intervertebral disc disorders with radiculopathy, lumbosacral region; M79.1 Myalgia; M54.5 Low back pain; G89.29 Other chronic pain; Z79.899 Other long term (current) drug therapy

== ENCOUNTER → 2017-06-17 | Outpatient (CLI) | payer MEDICAID ==
--- NOTE | 2017-07-01 01:27 | ECWPNPC ---
PATIENT NAME: LORIE GONZALES : 1960 GENDER: FEMALE VISIT DATE: 06/17/2017 DISCHARGE DATE: 06/17/17 1501 VISIT LOCKED DATE TIME: PHYSICIAN: GUNNER ISRAEL RESOURCE: GUNNER ISRAEL REASON FOR APPOINTMENT 1. LOW BACK PAIN HISTORY OF PRESENT ILLNESS HISTORY OF PRESENT ILLNESS: PAIN THE PATIENT DESCRIBES THE PAIN... 56 YEAR OLD FEMALE PATIENT WITH HISTORY OF CHRONIC LOW BACK PAIN. PATIENT DESCRIBES THE PAIN TENDER WITH A PAIN SCORE OF 1-2/10. PATIENT RECEIVED TRIGGER POINT INJECTIONS ON 03/28/17 AND STATES THAT SHE STILL HAS OVER 50% REDUCTION IN PAIN SINCE THE INJECTION WITH INCREASED MOBILITY AND FUNCTIONALITY. MRS. GONZALES STATES THAT ANY TYPE OF ACTIVITY INCLUDING WALKING, STANDING, AND SITTING INCREASES THE PAIN IN HER LOWER BACK. PATIENT DENIES UNEXPLAINABLE WEIGHT LOSS, FEVER, CHILLS, NEW CHANGES ON HER URINARY OR BOWEL CONTROL. FALL RISK SCREENING: SCREENING :NO FALLS IN THE PAST YEAR CURRENT MEDICATIONS TAKING ATORVASTATIN CALCIUM 20 MG TABLET 1 TABLET ORALLY ONCE A DAY TAKING ALBUTEROL SULFATE HFA 108 (90 BASE) MCG/ACT AEROSOL SOLUTION 2 PUFFS NEEDED INHALATION EVERY 4 HRS TAKING COMBIVENT 18-103 MCG/ACT AEROSOL INHALATION 2-3 TIMES DAILY NEDED TAKING CLARITIN 10 MG TABLET 1 TABLET ORALLY ONCE A DAY MEDICATION LIST REVIEWED AND RECONCILED WITH THE PATIENT PAST MEDICAL HISTORY HIGH CHOLESTEROL KIDNEY STONES ARTHRITIS BACK PAIN ALLERGIES N.K.D.A. REVIEW OF SYSTEMS REVIEWED BY: PROVIDER: GUNNER ISRAEL MD . CONSTITUTIONAL: ANY CHANGE IN YOUR MEDICAL CONDITION? NO . CHILLS NO . FEVER NO . INFECTION: DO YOU HAVE NEW INFECTIONS? NO . DO YOU HAVE HISTORY OF MRSA? NO . MUSCULOSKELETAL: ANY NEW PATTERNS OF PAIN OR NUMBNESS? NO . GASTROENTEROLOGY: ANY NEW CHANGE IN BOWEL CONTROL? NO . GENITOURINARY: ANY NEW CHANGE IN BLADDER CONTROL? NO . IS THERE A CHANCE YOU COULD BE ? NO . HEMATOLOGY/LYMPH: DO YOU TAKE ANY BLOOD THINNERS? (FOR EXAMPLE- COUMADIN, PLAVIX, AGGRENOX, PLATEL, PRADAXA, OR XARELTO) NO . WHEN WAS YOUR LAST DOSE? DATE: TIME: . NEUROLOGY: HAVE YOU FALLEN IN THE PAST 6 MONTHS? NO . ANY NEW EXTREMITY NUMBNESS OR WEAKNESS? NO . CARDIOLOGY: DO YOU HAVE A PACEMAKER OR DEFIBRILLATOR? NO . RESPIRATORY: HAVE YOU BEEN SICK IN THE PAST WEEK? NO . FEVER NO . FLU LIKE SYMPTOMS? NO . COUGH NO . INTEGUMENTARY: DO YOU HAVE ANY RASHES OR OPEN SORES? NO . ALLERGIC/IMMUNO: ARE YOU ALLERGIC TO SHELLFISH OR IV DYE? NO . ANY NEW ALLERGIES? NO . PSYCHIATRIC: DO YOU HAVE THOUGHTS OF HURTING YOURSELF OR SOMEONE ELSE? NO . ARE YOU ABUSED, NEGLECTED, OR IN AN UNSAFE ENVIRONMENT? NO . ENDOCRINOLOGY: ARE YOU DIABETIC? NO . OTHER: DO YOU NEED ANY PRESCRIPTIONS? NO . IF YES, PLEASE LIST: ____ . ANY NEW PROBLEMS WITH YOUR MEDICATIONS? NO . WHEN DID YOU LAST EAT? ____ . WHEN DID YOU LAST DRINK? ____ . WHAT DID YOU LAST DRINK? ____ . NAME OF PERSON DRIVING YOU HOME? ____ . DO YOU HAVE ANY OTHER QUESTIONS OR CONCERNS NO . VITAL SIGNS WT 159 LBS, HT 57 IN, BMI 34.40 INDEX, BP 112/67 MM HG, HR 54 /MIN, RR 16 /MIN, TEMP 96.7 F, OXYGEN SAT % 96%, SAFE IN ENV? (Y/N) YES, NA INITIALS [id number], REVIEWED BY: MAJOR. EXAMINATION : PATIENT IS ALERT O X 3 AND COOPERATIVE. THERE IS TENDERNESS IN THE LOW BACK PARASPINAL MUSCLE GROUP WITH BANDS OF TISSUES, RESTRICTION OF MOVEMENT, AND PRESENCE OF TRIGGER POINTS. MRI OF THE LUMBAR SPINE DONE ON 06/06/2016 SHOWS DISC PROTRUSION AND DISC BULGES AT MULTIPLE LEVELS. ASSESSMENTS MYALGIA - M79.1 (PRIMARY) INTERVERTEBRAL DISC DISORDERS WITH RADICULOPATHY, LUMBAR REGION - M51.16 INTERVERTEBRAL DISC DISORDERS WITH RADICULOPATHY, LUMBOSACRAL REGION - M51.17 TREATMENT MYALGIA NOTES: WE DISCUSSED SEVERAL ISSUES WITH MRS. GONZALES'S PAIN MANAGEMENT CASE. AT THIS TIME THE PATIENT IS DOING VERY WELL FROM THE TRIGGER POINT INJECTIONS SHE HAD DONE ON 03/28/17. PATIENT REPORTS HAVING OVER 50% RELIEF FROM THE PAIN AND AN INCREASE IN MOBILITY AND FUNCTIONALITY FROM THE INJECTION. AT THIS TIME THE PATIENT DOES NOT WANT TO MOVE FORWARD WITH ANY INTERVENTIONS AT THIS TIME DUE TO DOING SO WELL. PATIENT WILL RETURN TO THE CLINIC IN 6 WEEKS BUT WAS ADVISED TO CALL IF THE PAIN SIGNIFICANTLY WORSENS. INSTRUCTIONS WERE GIVEN, QUESTIONS WERE ANSWERED, PATIENT REPORTS UNDERSTANDING AND AGREES WITH THE PLAN. I, BILL MORAN, DOCUMENTED THE ABOVE INFORMATION ACTING A SCRIBE FOR DR. ISRAEL. I HAVE REVIEWED THE ABOVE DOCUMENT, WRITTEN BY BILL VAUGHNIBJason AND I VERIFY THAT IT IS ACCURATE. PREVENTIVE MEDICINE PAIN CLINIC TEACHING: PROCEDURE TEACHING REVIEWED TRIGGER POINT PROCEDURE WITH PT, VERBALIZES UNDERSTANDING. PROCEDURE CODES FA211 ESTABILISHED PATIENT [facility] FACILITY CHARGE G8427 DOC MEDS VERIFIED W/PT OR RE G8730 PAIN ASSESS POS TOOL F/U PLAN DOC DISPOSITION & COMMUNICATION FOLLOW UP 6 WEEKS ELECTRONICALLY SIGNED BY GUNNER ISRAEL MD ON 06/30/2017 AT 08:30 PM EDT DISCLAIMER : THIS IS A VISIT SUMMARY EXTRACTED FROM THE [email or web address] CHART. IT IS NOT A COPY OF THE [email or web address] PROGRESS NOTE. ADELE
== END ==
LOC: M PAIN 13:40
PROVIDERS: ATTEND Anesthesiology
DX: G89.29 Other chronic pain (principal); M51.16 Intervertebral disc disorders with radiculopathy, lumbar region; M51.17 Intervertebral disc disorders with radiculopathy, lumbosacral region; M79.1 Myalgia; E78.00 Pure hypercholesterolemia, unspecified; Z79.899 Other long term (current) drug therapy

== ENCOUNTER → 2017-06-25 | Outpatient (CLI) | payer MEDICAID ==
[~2017-06-25] MED LIST changes: +diazePAM 5 MG TAB As Ordered ONE; +oxyCODONE 5MG TAB As Ordered ONE
--- NOTE | 2017-07-15 00:56 | ECWPNPC ---
PATIENT NAME: LORIE GONZALES : 1960 GENDER: FEMALE VISIT DATE: 06/25/2017 DISCHARGE DATE: 06/25/17 1656 VISIT LOCKED DATE TIME: PHYSICIAN: GUNNER ISRAEL RESOURCE: GUNNER ISRAEL REASON FOR APPOINTMENT 1. TPI HISTORY OF PRESENT ILLNESS HISTORY OF PRESENT ILLNESS: PAIN THE PATIENT DESCRIBES THE PAIN... FALL RISK SCREENING: SCREENING :NO FALLS IN THE PAST YEAR CURRENT MEDICATIONS TAKING ATORVASTATIN CALCIUM 20 MG TABLET 1 TABLET ORALLY ONCE A DAY, NOTES: 06/24/17 1900 TAKING ALBUTEROL SULFATE HFA 108 (90 BASE) MCG/ACT AEROSOL SOLUTION 2 PUFFS NEEDED INHALATION EVERY 4 HRS, NOTES: 06/25/17 0700 TAKING COMBIVENT 18-103 MCG/ACT AEROSOL INHALATION 2-3 TIMES DAILY NEDED, NOTES: 06/24/17 1730 TAKING CLARITIN 10 MG TABLET 1 TABLET ORALLY ONCE A DAY, NOTES: 06/24/17 190 MEDICATION LIST REVIEWED AND RECONCILED WITH THE PATIENT PAST MEDICAL HISTORY HIGH CHOLESTEROL KIDNEY STONES ARTHRITIS BACK PAIN ALLERGIES N.K.D.A. SURGICAL HISTORY RIGHT HIP REPLACEMENT 2006 KIDNEY STONES 1998 APPENDECTOMY TEENAGER ? OVARIAN CYSTECTOMY RIGHT 1997 REVIEW OF SYSTEMS REVIEWED BY: PROVIDER: . CONSTITUTIONAL: ANY CHANGE IN YOUR MEDICAL CONDITION? NO . CHILLS NO . FEVER NO . INFECTION: DO YOU HAVE NEW INFECTIONS? NO . DO YOU HAVE HISTORY OF MRSA? NO . MUSCULOSKELETAL: ANY NEW PATTERNS OF PAIN OR NUMBNESS? NO . GASTROENTEROLOGY: ANY NEW CHANGE IN BOWEL CONTROL? NO . GENITOURINARY: ANY NEW CHANGE IN BLADDER CONTROL? NO . IS THERE A CHANCE YOU COULD BE ? NO . HEMATOLOGY/LYMPH: DO YOU TAKE ANY BLOOD THINNERS? (FOR EXAMPLE- COUMADIN, PLAVIX, AGGRENOX, PLATEL, PRADAXA, OR XARELTO) NO . WHEN WAS YOUR LAST DOSE? DATE: TIME: . NEUROLOGY: HAVE YOU FALLEN IN THE PAST 6 MONTHS? NO . ANY NEW EXTREMITY NUMBNESS OR WEAKNESS? NO . CARDIOLOGY: DO YOU HAVE A PACEMAKER OR DEFIBRILLATOR? NO . RESPIRATORY: HAVE YOU BEEN SICK IN THE PAST WEEK? NO . FEVER NO . FLU LIKE SYMPTOMS? NO . COUGH NO . INTEGUMENTARY: DO YOU HAVE ANY RASHES OR OPEN SORES? NO . ALLERGIC/IMMUNO: ARE YOU ALLERGIC TO SHELLFISH OR IV DYE? NO . ANY NEW ALLERGIES? NO . PSYCHIATRIC: DO YOU HAVE THOUGHTS OF HURTING YOURSELF OR SOMEONE ELSE? NO . ARE YOU ABUSED, NEGLECTED, OR IN AN UNSAFE ENVIRONMENT? NO . ENDOCRINOLOGY: ARE YOU DIABETIC? NO . OTHER: DO YOU NEED ANY PRESCRIPTIONS? NO . IF YES, PLEASE LIST: ____ . ANY NEW PROBLEMS WITH YOUR MEDICATIONS? NO . WHEN DID YOU LAST EAT? 06/25/17 0730 . WHEN DID YOU LAST DRINK? 06/25/17 1315 . WHAT DID YOU LAST DRINK? WATER . NAME OF PERSON DRIVING YOU HOME? YELLOW CAB . DO YOU HAVE ANY OTHER QUESTIONS OR CONCERNS NO . VITAL SIGNS WT 158 LBS, HT 57 IN, BMI 34.19 INDEX, BP 130/73 MM HG, HR 64 /MIN, RR 16 /MIN, TEMP 98.5 F, OXYGEN SAT % 97%, NA INITIALS AW 1428. ASSESSMENTS MYALGIA - M79.1 (PRIMARY) PROCEDURES PN TRIGGER POINT INJECTION WITH STEROIDS PRE PROCEDURE DIAGNOSIS 1. MYALGIA 2. PAIN AT BILATERAL LOWER BACK AREA POST PROCEDURE DIAGNOSIS 1. MYALGIA 2. PAIN AT BILATERAL LOWER BACK AREA PROCEDURE TRIGGER POINT INJECTION AT BILATERAL LOWER BACK AREA SURGEON DR. GUNNER ISRAEL DATA MANAGEMENT CONSULTANT NONE ANESTHESIA LOCAL PRE PROCEDURE NOTE THE PATIENT HAS A HISTORY OF CHRONIC PAIN AT THE BILATERAL LOWER BACK AREA. I EVALUATE THE PATIENT AND REVIEWED THE CHART. THERE IS EVIDENCE OF BANDS OF TISSUE WITH RESTRICTION OF MOVEMENT AND PRESENCE OF TRIGGER POINT AT THE AFFECTED AREA. I WENT OVER THE RISKS, ALTERNATIVES, AND BENEFITS ASSOCIATED WITH THIS PROCEDURE. THE PATIENT WOULD LIKE TO PROCEED AND GIVE CONSENT TO PERFORMED THE PROCEDURE. THE PATIENT DENIES UNEXPLAINABLE WEIGHT LOSS, FEVER, CHILLS, OR NEW CHANGES IN URINARY OR BOWEL CONTROL DESCRIPTION OF PROCEDURE THE PATIENT WAS BROUGHT TO THE PROCEDURE ROOM AND PLACED IN THE SITTING POSITION. THE AREA WAS CLEANED WITH ALCOHOL. THE PROCEDURE WAS DONE USING ASEPTIC STERILE TECHNIQUE. I CHECKED LATERALITY AND THE LEVEL WHERE THE PROCEDURE WAS GOING TO BE PERFORMED WITH THE PATIENT AND THE SUPPORTING STAFF AT THE MOMENT OF THE TIME OUT IN THE PROCEDURE ROOM. USING A 25-GAUGE NEEDLE, TRIGGER POINTS WERE INJECTED AT THE BILATERAL LOWER BACK AREA WITH A TOTAL OF 40 ML OF BUPIVACAINE 0.25% AND KENALOG 40 MG. THERE WAS NO EVIDENCE OF BLOOD, PARESTHESIA OR CEREBROSPINAL FLUID DURING THE PROCEDURE. THE PATIENT WAS SENT TO THE RECOVERY ROOM. THE PATIENT WAS MOVING THE EXTREMITIES AND DOING WELL. THERE WAS NO COMPLICATION DURING THE PROCEDURE POST PROCEDURE NOTE THE PATIENT WILL BE SEEN IN A FOLLOW UP IN THE NEXT FEW WEEKS. INSTRUCTIONS WERE GIVEN, QUESTIONS WERE ANSWERED, AND THE PATIENT EXPRESSED UNDERSTANDING AND AGREES WITH THE PLAN. I, BILL MORAN, DOCUMENTED THE ABOVE INFORMATION ACTING A SCRIBE FOR DR. ISRAEL. I HAVE REVIEWED THE ABOVE DOCUMENT, WRITTEN BY BILL MORAN SCRIBJason AND I VERIFY THAT IT IS ACCURATE PROCEDURE CODES 11398 INJ TRIGGER POINT 11/18 [facility] [place] DISPOSITION & COMMUNICATION FOLLOW UP 3 WEEKS ELECTRONICALLY SIGNED BY GUNNER ISRAEL MD ON 07/14/2017 AT 11:44 AM EDT DISCLAIMER : THIS IS A VISIT SUMMARY EXTRACTED FROM THE [employer] CHART. IT IS NOT A COPY OF THE [employer] PROGRESS NOTE. DAELE
== END ==
LOC: M PAIN 14:20
PROVIDERS: ATTEND Anesthesiology
DX: G89.29 Other chronic pain (principal); M79.1 Myalgia; Z79.899 Other long term (current) drug therapy
CPT/HCPCS: 20552; J3301

== ENCOUNTER → 2017-08-01 | Outpatient (CLI) | payer MEDICAID ==
--- NOTE | 2017-08-07 01:36 | ECWPNPC ---
PATIENT NAME: LORIE GONZALES : 1960 GENDER: FEMALE VISIT DATE: 08/01/2017 DISCHARGE DATE: 08/01/17 1043 VISIT LOCKED DATE TIME: PHYSICIAN: GUNNER ISRAEL RESOURCE: GUNNER ISRAEL REASON FOR APPOINTMENT 1. LOW BACK PAIN HISTORY OF PRESENT ILLNESS HISTORY OF PRESENT ILLNESS: PAIN THE PATIENT DESCRIBES THE PAIN... 56 YEAR OLD FEMALE PATIENT WITH HISTORY OF CHRONIC LOW BACK PAIN. PATIENT DESCRIBES THE PAIN TENDER WITH A PAIN SCORE OF 8-9/10. PATIENT RECEIVED TRIGGER POINT INJECTIONS ON 06/25/17 AND STATES THAT SHE STILL HAS OVER 50% REDUCTION IN PAIN SINCE THE INJECTION WITH INCREASED MOBILITY AND FUNCTIONALITY, HOWEVER SHE STATES THAT THE PAIN IS STARTING TO RETURN. MRS. GONZALES STATES THAT ANY TYPE OF ACTIVITY INCLUDING WALKING, STANDING, AND SITTING INCREASES THE PAIN IN HER LOWER BACK. PATIENT DENIES UNEXPLAINABLE WEIGHT LOSS, FEVER, CHILLS, NEW CHANGES ON HER URINARY OR BOWEL CONTROL. FALL RISK SCREENING: SCREENING :NO FALLS IN THE PAST YEAR CURRENT MEDICATIONS TAKING ATORVASTATIN CALCIUM 20 MG TABLET 1 TABLET ORALLY ONCE A DAY TAKING ALBUTEROL SULFATE HFA 108 (90 BASE) MCG/ACT AEROSOL SOLUTION 2 PUFFS NEEDED INHALATION EVERY 4 HRS TAKING COMBIVENT 18-103 MCG/ACT AEROSOL INHALATION 2-3 TIMES DAILY NEDED TAKING CLARITIN 10 MG TABLET 1 TABLET ORALLY ONCE A DAY MEDICATION LIST REVIEWED AND RECONCILED WITH THE PATIENT PAST MEDICAL HISTORY HIGH CHOLESTEROL KIDNEY STONES ARTHRITIS BACK PAIN ALLERGIES N.K.D.A. SURGICAL HISTORY RIGHT HIP REPLACEMENT 2006 KIDNEY STONES 1998 APPENDECTOMY TEENAGER ? OVARIAN CYSTECTOMY RIGHT 1997 FAMILY HISTORY FATHER: 63 YRS, DIAGNOSED WITH CANCER MOTHER: ALIVE 78 YRS SIBLINGS: ALIVE SOCIAL HISTORY GENERAL: TOBACCO USE ARE YOU A:NONSMOKER RECREATIONAL DRUG USE: YES DRUG USE?YES CAFFEINE: YES CAFFEINE USE?YES HOW OFTEN AND HOW MUCH? 6-7 CUPS [id number] PFS, CLERGY, PUBLIC HEALTH REFERRALS PFS REFERRAL NEEDED?NO CLERGY REFERRAL NEEDED?NO PUBLIC HEALTH REFERRAL NEEDED?NO HAS THE PATIENT BEEN EDUCATED REGARDING HIS/HER PLAN OF CARE?YES HAS THE PATIENT BEEN EDUCATED REGARDING PAIN, THE RISK FOR PAIN, THE IMPORTANCE OF EFFECTIVE PAIN MANAGEMENT, AND THE PAIN ASSESSMENT PROCESS?YES ADVANCE DIRECTIVES HEALTH CARE PROXY?NO WOULD YOU LIKE MORE INFORMATION?NO POWER OF SPLUNK DASHBOARD DEVELOPER?NO DO YOU HAVE A DNR?NO WOULD YOU LIKE MORE INFORMATION?NO LIVING WILL?NO WOULD YOU LIKE MORE INFORMATION?NO WOULD YOU LIKE MORE INFORMATION?NO PT STATES SHE SMOKES MARIJUANNA IN PRIVATE TO HELP WITH PAIN. REVIEW OF SYSTEMS REVIEWED BY: PROVIDER: GUNNER ISRAEL MD . CONSTITUTIONAL: ANY CHANGE IN YOUR MEDICAL CONDITION? NO . CHILLS NO . FEVER NO . INFECTION: DO YOU HAVE NEW INFECTIONS? NO . DO YOU HAVE HISTORY OF MRSA? NO . MUSCULOSKELETAL: ANY NEW PATTERNS OF PAIN OR NUMBNESS? NO . GASTROENTEROLOGY: ANY NEW CHANGE IN BOWEL CONTROL? NO . GENITOURINARY: ANY NEW CHANGE IN BLADDER CONTROL? NO . IS THERE A CHANCE YOU COULD BE ? NO . HEMATOLOGY/LYMPH: DO YOU TAKE ANY BLOOD THINNERS? (FOR EXAMPLE- COUMADIN, PLAVIX, AGGRENOX, PLATEL, PRADAXA, OR XARELTO) NO . WHEN WAS YOUR LAST DOSE? DATE: TIME: . NEUROLOGY: HAVE YOU FALLEN IN THE PAST 6 MONTHS? NO . ANY NEW EXTREMITY NUMBNESS OR WEAKNESS? NO . CARDIOLOGY: DO YOU HAVE A PACEMAKER OR DEFIBRILLATOR? NO . RESPIRATORY: HAVE YOU BEEN SICK IN THE PAST WEEK? NO . FEVER NO . FLU LIKE SYMPTOMS? NO . COUGH NO . INTEGUMENTARY: DO YOU HAVE ANY RASHES OR OPEN SORES? NO . ALLERGIC/IMMUNO: ARE YOU ALLERGIC TO SHELLFISH OR IV DYE? NO . ANY NEW ALLERGIES? NO . PSYCHIATRIC: DO YOU HAVE THOUGHTS OF HURTING YOURSELF OR SOMEONE ELSE? NO . ARE YOU ABUSED, NEGLECTED, OR IN AN UNSAFE ENVIRONMENT? NO . ENDOCRINOLOGY: ARE YOU DIABETIC? NO . OTHER: DO YOU NEED ANY PRESCRIPTIONS? NO . IF YES, PLEASE LIST: ____ . ANY NEW PROBLEMS WITH YOUR MEDICATIONS? NO . WHEN DID YOU LAST EAT? ____ . WHEN DID YOU LAST DRINK? ____ . WHAT DID YOU LAST DRINK? ____ . NAME OF PERSON DRIVING YOU HOME? ____ . DO YOU HAVE ANY OTHER QUESTIONS OR CONCERNS YES, TPI HELPED SOME BUT NOW NOW PAIN IS BACK. . VITAL SIGNS WT 158 LBS, HT 57 IN, BMI 34.19 INDEX, BP 128/73 MM HG, HR 54 /MIN, RR 16 /MIN, TEMP 96.5 F, OXYGEN SAT % 97%, NA INITIALS SC 09:46, REVIEWED BY: ROSENDO. EXAMINATION : PATIENT IS ALERT O X 3 AND COOPERATIVE. THERE IS TENDERNESS IN THE LOW BACK PARASPINAL MUSCLE GROUP WITH BANDS OF TISSUES, RESTRICTION OF MOVEMENT, AND PRESENCE OF TRIGGER POINTS. MRI OF THE LUMBAR SPINE DONE ON 06/06/2016 SHOWS DISC PROTRUSION AND DISC BULGES AT MULTIPLE LEVELS. ASSESSMENTS MYALGIA - M79.1 (PRIMARY) INTERVERTEBRAL DISC DISORDER WITH RADICULOPATHY OF LUMBAR REGION - M51.16 INTERVERTEBRAL DISC DISORDER WITH RADICULOPATHY OF LUMBOSACRAL REGION - M51.17 TREATMENT OTHERS START TIZANIDINE HCL TABLET, 2 MG, 1 TABLET NEEDED, ORALLY FOR SPASMS AND PAIN, THREE TIMES A DAY, 30 DAY(S), 70, REFILLS 1 NOTES: WE DISCUSSED SEVERAL ISSUES WITH MRS. GONZALES'S PAIN MANAGEMENT CASE. PATIENT WILL START USING TIZANIDINE AT NIGHT TO SEE IF IT WILL AID IN RELIEF FROM THE MUSCLE SPASMS. PATIENT WAS ADVISED TO STOP THE MEDICATION IS SHE HAD ANY ADVERSE SIDE EFFECTS. AT THIS TIME THE PATIENT IS DOING VERY WELL FROM THE TRIGGER POINT INJECTIONS SHE HAD DONE ON 06/25/17. PATIENT REPORTS HAVING OVER 50% RELIEF FROM THE PAIN AND AN INCREASE IN MOBILITY AND FUNCTIONALITY FROM THE INJECTION, HOWEVER THE PAIN IS STARTING TO RETURN. PATIENT WOULD LIKE TO PROCEED WITH ANOTHER TRIGGER POINT INJECTION DUE TO THE RELIEF SHE HAS GOTTEN. WE DISCUSSED THE RISKS, BENENFITS, AND ALTNERATIVES OF THE INJECTION AND THE PATIENT WOULD LIKE TO PROCEED AT THIS TIME. INSTRUCTIONS WERE GIVEN, QUESTIONS WERE ANSWERED, PATIENT REPORTS UNDERSTANDING AND AGREES WITH THE PLAN. I, BILL MORAN, DOCUMENTED THE ABOVE INFORMATION ACTING A SCRIBE FOR DR. ISRAEL. I HAVE REVIEWED THE ABOVE DOCUMENT, WRITTEN BY BILL SAAVEDRA AND I VERIFY THAT IT IS ACCURATE. PREVENTIVE MEDICINE DISCUSSED PRE PROCEDURE CARE AND TPI / PT EXPRESSED UNDERSTANDING. GAVE INFO ON TIZANIDINE. PROCEDURE CODES FA211 ESTABILISHED PATIENT [facility] FACILITY CHARGE G8427 DOC MEDS VERIFIED W/PT OR RE G5836 PAIN ASSESS POS TOOL F/U PLAN DOC DISPOSITION & COMMUNICATION FOLLOW UP TPI AFTER APPROVAL ELECTRONICALLY SIGNED BY GUNNER ISRAEL MD ON 08/06/2017 AT 01:36 PM EDT DISCLAIMER : THIS IS A VISIT SUMMARY EXTRACTED FROM THE [employer] CHART. IT IS NOT A COPY OF THE [employer] PROGRESS NOTE. MTDD
== END ==
LOC: M PAIN 09:30
PROVIDERS: ATTEND Anesthesiology
DX: M79.1 Myalgia (principal); M51.16 Intervertebral disc disorders with radiculopathy, lumbar region; M51.17 Intervertebral disc disorders with radiculopathy, lumbosacral region; G89.29 Other chronic pain; M54.5 Low back pain; Z79.899 Other long term (current) drug therapy

== ENCOUNTER → 2017-08-08 | Outpatient (CLI) | payer MEDICAID ==
--- NOTE | 2017-08-20 00:50 | ECWPNPC ---
PATIENT NAME: LORIE GONZALES : 1960 GENDER: FEMALE VISIT DATE: 08/08/2017 DISCHARGE DATE: 08/08/17 1102 VISIT LOCKED DATE TIME: PHYSICIAN: GUNNER ISRAEL RESOURCE: GUNNER ISRAEL REASON FOR APPOINTMENT 1. TPI HISTORY OF PRESENT ILLNESS HISTORY OF PRESENT ILLNESS: PAIN THE PATIENT DESCRIBES THE PAIN... FALL RISK SCREENING: SCREENING :NO FALLS IN THE PAST YEAR CURRENT MEDICATIONS TAKING ATORVASTATIN CALCIUM 20 MG TABLET 1 TABLET ORALLY ONCE A DAY, NOTES: 08/07/172129 TAKING ALBUTEROL SULFATE HFA 108 (90 BASE) MCG/ACT AEROSOL SOLUTION 2 PUFFS NEEDED INHALATION EVERY 4 HRS, NOTES: 08/07/171999 TAKING COMBIVENT 18-103 MCG/ACT AEROSOL INHALATION 2-3 TIMES DAILY NEDED, NOTES: 08/07/171999 TAKING CLARITIN 10 MG TABLET 1 TABLET ORALLY ONCE A DAY, NOTES: 07/31/17 TAKING TIZANIDINE HCL 2 MG TABLET 1 TABLET NEEDED ORALLY FOR SPASMS AND PAIN THREE TIMES A DAY, NOTES: NOT STARTED YET MEDICATION LIST REVIEWED AND RECONCILED WITH THE PATIENT PAST MEDICAL HISTORY HIGH CHOLESTEROL KIDNEY STONES ARTHRITIS BACK PAIN ALLERGIES N.K.D.A. SOCIAL HISTORY GENERAL: TOBACCO USE ARE YOU A:NONSMOKER RECREATIONAL DRUG USE: YES DRUG USE?YES CAFFEINE: YES CAFFEINE USE?YES HOW OFTEN AND HOW MUCH? 6-7 CUPS [id number] PFS, CLERGY, PUBLIC HEALTH REFERRALS PFS REFERRAL NEEDED?NO CLERGY REFERRAL NEEDED?NO PUBLIC HEALTH REFERRAL NEEDED?NO HAS THE PATIENT BEEN EDUCATED REGARDING HIS/HER PLAN OF CARE?YES PLEASE DOCUMENT ANY ADDTIONAL DETAILS. REVIEWED PLAN OF CARE AND TEACHING FOR TRIGGER POINT INJECTIONS HAS THE PATIENT BEEN EDUCATED REGARDING PAIN, THE RISK FOR PAIN, THE IMPORTANCE OF EFFECTIVE PAIN MANAGEMENT, AND THE PAIN ASSESSMENT PROCESS?YES ADVANCE DIRECTIVES HEALTH CARE PROXY?NO WOULD YOU LIKE MORE INFORMATION?NO POWER OF TELEPHONE STATION INSTALLER?NO DO YOU HAVE A DNR?NO WOULD YOU LIKE MORE INFORMATION?NO LIVING WILL?NO WOULD YOU LIKE MORE INFORMATION?NO WOULD YOU LIKE MORE INFORMATION?NO PT STATES SHE SMOKES MARIJUANNA IN PRIVATE TO HELP WITH PAIN. REVIEW OF SYSTEMS REVIEWED BY: PROVIDER: . CONSTITUTIONAL: ANY CHANGE IN YOUR MEDICAL CONDITION? NO . CHILLS NO . FEVER NO . INFECTION: DO YOU HAVE NEW INFECTIONS? NO . DO YOU HAVE HISTORY OF MRSA? NO . MUSCULOSKELETAL: ANY NEW PATTERNS OF PAIN OR NUMBNESS? NO . GASTROENTEROLOGY: ANY NEW CHANGE IN BOWEL CONTROL? NO . GENITOURINARY: ANY NEW CHANGE IN BLADDER CONTROL? NO . IS THERE A CHANCE YOU COULD BE ? NO . HEMATOLOGY/LYMPH: DO YOU TAKE ANY BLOOD THINNERS? (FOR EXAMPLE- COUMADIN, PLAVIX, AGGRENOX, PLATEL, PRADAXA, OR XARELTO) NO . WHEN WAS YOUR LAST DOSE? DATE: TIME: . NEUROLOGY: HAVE YOU FALLEN IN THE PAST 6 MONTHS? NO . ANY NEW EXTREMITY NUMBNESS OR WEAKNESS? NO . CARDIOLOGY: DO YOU HAVE A PACEMAKER OR DEFIBRILLATOR? NO . RESPIRATORY: HAVE YOU BEEN SICK IN THE PAST WEEK? NO . FEVER NO . FLU LIKE SYMPTOMS? NO . COUGH NO . INTEGUMENTARY: DO YOU HAVE ANY RASHES OR OPEN SORES? NO . ALLERGIC/IMMUNO: ARE YOU ALLERGIC TO SHELLFISH OR IV DYE? NO . ANY NEW ALLERGIES? NO . PSYCHIATRIC: DO YOU HAVE THOUGHTS OF HURTING YOURSELF OR SOMEONE ELSE? NO . ARE YOU ABUSED, NEGLECTED, OR IN AN UNSAFE ENVIRONMENT? NO . ENDOCRINOLOGY: ARE YOU DIABETIC? NO . OTHER: DO YOU NEED ANY PRESCRIPTIONS? NO . IF YES, PLEASE LIST: ____ . ANY NEW PROBLEMS WITH YOUR MEDICATIONS? NO . WHEN DID YOU LAST EAT? ____08/07/17 1930 . WHEN DID YOU LAST DRINK? ____08/08/17 0700 . WHAT DID YOU LAST DRINK? ____APPLE JUICE . NAME OF PERSON DRIVING YOU HOME? ____CAB . DO YOU HAVE ANY OTHER QUESTIONS OR CONCERNS NO . VITAL SIGNS WT 157 LBS, HT 57 IN, BMI 33.97 INDEX, BP 141/69 MM HG, HR 58 /MIN, RR 16 /MIN, TEMP 97.0 F, OXYGEN SAT % 98%, SAFE IN ENV? (Y/N) YES, NA INITIALS MT 09:02, REVIEWED BY: LAS. ABDI MYALGIA - MSlava.1 (PRIMARY) PROCEDURES PN TRIGGER POINT INJECTION WITH STEROIDS PRE PROCEDURE DIAGNOSIS 1. MYALGIA 2. PAIN AT BILATERAL LOWER BACK AREA POST PROCEDURE DIAGNOSIS 1. MYALGIA 2. PAIN AT BILATERAL LOWER BACK AREA PROCEDURE TRIGGER POINT INJECTION AT BILATERAL LOWER BACK AREA SURGEON DR. GUNNER ISRAEL BOARDING HOUSE COOK NONE ANESTHESIA LOCAL PRE PROCEDURE NOTE THE PATIENT HAS A HISTORY OF CHRONIC PAIN AT THE RIGHT AND LEFT LOWER BACK AREA. I EVALUATE THE PATIENT AND REVIEWED THE CHART. THERE IS EVIDENCE OF BANDS OF TISSUE WITH RESTRICTION OF MOVEMENT AND PRESENCE OF TRIGGER POINT AT THE AFFECTED AREA. I WENT OVER THE RISKS, ALTERNATIVES, AND BENEFITS ASSOCIATED WITH THIS PROCEDURE. THE PATIENT WOULD LIKE TO PROCEED AND GIVE CONSENT TO PERFORMED THE PROCEDURE. THE PATIENT DENIES UNEXPLAINABLE WEIGHT LOSS, FEVER, CHILLS, OR NEW CHANGES IN URINARY OR BOWEL CONTROL DESCRIPTION OF PROCEDURE THE PATIENT WAS BROUGHT TO THE PROCEDURE ROOM AND PLACED IN THE SITTING POSITION. THE AREA WAS CLEANED WITH ALCOHOL. THE PROCEDURE WAS DONE USING ASEPTIC STERILE TECHNIQUE. I CHECKED LATERALITY AND THE LEVEL WHERE THE PROCEDURE WAS GOING TO BE PERFORMED WITH THE PATIENT AND THE SUPPORTING STAFF AT THE MOMENT OF THE TIME OUT IN THE PROCEDURE ROOM. USING A 25-GAUGE NEEDLE, TRIGGER POINTS WERE INJECTED AT THE RIGHT AND LEFT LOWER BACK AREA WITH A TOTAL OF 40 ML OF BUPIVACAINE 0.25% AND KENALOG 40 MG. THERE WAS NO EVIDENCE OF BLOOD, PARESTHESIA OR CEREBROSPINAL FLUID DURING THE PROCEDURE. THE PATIENT WAS SENT TO THE RECOVERY ROOM. THE PATIENT WAS MOVING THE EXTREMITIES AND DOING WELL. THERE WAS NO COMPLICATION DURING THE PROCEDURE POST PROCEDURE NOTE THE PATIENT WILL BE SEEN IN A FOLLOW UP IN THE NEXT FEW WEEKS. INSTRUCTIONS WERE GIVEN, QUESTIONS WERE ANSWERED, AND THE PATIENT EXPRESSED UNDERSTANDING AND AGREES WITH THE PLAN. I, BILL MORAN, DOCUMENTED THE ABOVE INFORMATION ACTING A SCRIBE FOR DR. ISRAEL. I HAVE REVIEWED THE ABOVE DOCUMENT, WRITTEN BY BILL SAAVEDRA AND I VERIFY THAT IT IS ACCURATE. PROCEDURE CODES 79399 INJ TRIGGER POINT 11/18 [facility] [place] DISPOSITION & COMMUNICATION FOLLOW UP 3 WEEKS ELECTRONICALLY SIGNED BY GUNNER ISRAEL MD ON 08/18/2017 AT 01:10 PM EDT DISCLAIMER : THIS IS A VISIT SUMMARY EXTRACTED FROM THE [employer] CHART. IT IS NOT A COPY OF THE [employer] PROGRESS NOTE. ADELE
== END ==
LOC: M PAIN 09:15
PROVIDERS: ATTEND Anesthesiology
DX: G89.29 Other chronic pain (principal); M79.1 Myalgia; M54.5 Low back pain; Z79.899 Other long term (current) drug therapy
CPT/HCPCS: 20552; J3301

== ENCOUNTER → 2017-08-28 | Outpatient (CLI) | payer MEDICAID ==
[2017-08-28 10:05] LABS: MEAN CORPUSCULAR HGB CONC 33.7 g/dl (32.0-36.5); MEAN CORPUSCULAR VOLUME 89.2 fl (80.0-96.0); RED CELL DISTRIBUTION WIDTH 13.5 % (11.5-14.5); WHITE BLOOD COUNT 9.5 10^3/uL (4.0-10.0)
[2017-08-28 10:25] LABS: ALBUMIN 3.5 GM/DL (3.2-5.2); ALBUMIN/GLOBULIN RATIO 1.09 (1.00-1.93); ALKALINE PHOSPHATASE 76 U/L (45-117); ALT/SGPT 21 U/L (12-78); ANION GAP 8 MEQ/L (8-16); AST/SGOT 11 U/L (15-37); BILIRUBIN,TOTAL 0.3 MG/DL (0.2-1.0); BLOOD UREA NITROGEN 16 MG/DL (7-18); CALCIUM LEVEL 9.5 MG/DL (8.5-10.1); CARBON DIOXIDE LEVEL 25 MEQ/L (21-32); CHLORIDE LEVEL 107 MEQ/L (98-107); CHOLESTEROL LEVEL 283 MG/DL (<200); CREATININE FOR GFR 0.47 MG/DL (0.55-1.02); GLOMERULAR FILTRATION RATE > 60.0 (>51); GLUCOSE, FASTING 97 MG/DL (70-105); POTASSIUM SERUM 4.1 MEQ/L (3.5-5.1); SODIUM LEVEL 140 MEQ/L (136-145); TOTAL PROTEIN 6.7 GM/DL (6.4-8.2); TRIGLYCERIDES LEVEL 76 MG/DL (<150)
== END ==
LOC: M LAB 08:42
PROVIDERS: ATTEND Nurse Practitioner Family
DX: E55.9 Vitamin D deficiency, unspecified (principal); Z79.899 Other long term (current) drug therapy; E78.5 Hyperlipidemia, unspecified

== ENCOUNTER → 2018-01-08 | Outpatient (CLI) | payer MEDICAID ==
[2018-01-08 14:37] LABS: BASO % 0.3 % (0.0-1.0); EOS # 0.1 10^3/uL (0.0-0.50); HEMATOCRIT 40.1 % (36.0-47.0); HEMOGLOBIN 13.6 g/dl (12.0-16.0); IMMATURE GRANULOCYTE % 0.3 % (0-3.0); LYMPH # 2.7 10^3/uL (1.5-4.5); LYMPH % 26.5 % (24.0-44.0); MEAN CORPUSCULAR HEMOGLOBIN 29.9 pg (27.0-33.0); MEAN CORPUSCULAR HGB CONC 33.9 g/dl (32.0-36.5); MEAN CORPUSCULAR VOLUME 88.1 fl (80.0-96.0); MONO # 0.7 10^3/uL (0.0-0.8); MONO % 7.4 % (0.0-5.0); NEUTROPHILS # 6.5 10^3/uL (1.8-7.7); NEUTROPHILS % 64.5 % (36.0-66.0); PLATELET COUNT, AUTOMATED 361 10^3/uL (150-450); RED BLOOD COUNT 4.55 10^6/uL (4.00-5.40); RED CELL DISTRIBUTION WIDTH 13.2 % (11.5-14.5)
[2018-01-08 14:59] LABS: ESTIMATED AVERAGE GLUCOSE 120 MG/DL (60-110); HEMOGLOBIN A1c 5.8 %
[2018-01-08 15:08] LABS: ALBUMIN 3.9 GM/DL (3.2-5.2); ALBUMIN/GLOBULIN RATIO 1.22 (1.00-1.93); ALKALINE PHOSPHATASE 86 U/L (45-117); ALT/SGPT 23 U/L (12-78); ANION GAP 8 MEQ/L (8-16); AST/SGOT 15 U/L (7-37); BILIRUBIN,TOTAL 0.4 MG/DL (0.2-1.0); BLOOD UREA NITROGEN 15 MG/DL (7-18); CALCIUM LEVEL 8.9 MG/DL (8.5-10.1); CARBON DIOXIDE LEVEL 26 MEQ/L (21-32); CHLORIDE LEVEL 108 MEQ/L (98-107); CHOLESTEROL LEVEL 152 MG/DL (<200); CHOLESTEROL RISK RATIO 2.491 (<5); CREATININE FOR GFR 0.56 MG/DL (0.55-1.30); FREE T4 1.04 NG/DL (0.76-1.46); GLOMERULAR FILTRATION RATE > 60.0 (>51); GLUCOSE, FASTING 79 MG/DL (70-100); HDL CHOLESTEROL 61 MG/DL (>40); LDL CHOLESTEROL 73.4 MG/DL (<100); NON-HDL-C 91 MG/DL; POTASSIUM SERUM 4.1 MEQ/L (3.5-5.1); SODIUM LEVEL 142 MEQ/L (136-145); TOTAL PROTEIN 7.1 GM/DL (6.4-8.2); TRIGLYCERIDES LEVEL 88 MG/DL (<150)
== END ==
LOC: M LAB 14:05
DX: E78.5 Hyperlipidemia, unspecified (principal); M51.9 Unspecified thoracic, thoracolumbar and lumbosacral intervertebral disc disorder; J45.909 Unspecified asthma, uncomplicated; M87.851 Other osteonecrosis, right femur; Z79.899 Other long term (current) drug therapy
CPT/HCPCS: 84443

== ENCOUNTER → 2018-01-22 | Outpatient (CLI) | payer MEDICAID | LOC: M RAD 09:43 | DX: K42.9 Umbilical hernia without obstruction or gangrene (principal); Z12.31 Encounter for screening mammogram for malignant neoplasm of breast | CPT/HCPCS: 76705 ==

== ENCOUNTER 2018-03-04 07:06 | Day surgery (SDC) | payer MEDICAID ==
[2018-03-04] MEDS: NS 1,000 ML IV (07:36)
[2018-03-04] MEDS ORDERED: LIDOCAINE 2% INJ 100 MG/5 ML SDV (FOR ANES.) As Ordered (08:06)
[2018-03-04] MEDS ORDERED: PROPOFOL 200 MG/20 ML VIAL As Ordered (08:06)
== END 2018-03-04 09:12 | disposition home or self-care (01) ==
LOC: M OPP 09:12
DX: Z12.11 Encounter for screening for malignant neoplasm of colon (principal); D12.3 Benign neoplasm of transverse colon; K64.1 Second degree hemorrhoids; K57.30 Diverticulosis of large intestine without perforation or abscess without bleeding; E78.5 Hyperlipidemia, unspecified; K43.0 Incisional hernia with obstruction, without gangrene; M19.90 Unspecified osteoarthritis, unspecified site; M54.5 Low back pain; Z78.0 Asymptomatic menopausal state; J44.9 Chronic obstructive pulmonary disease, unspecified; Z80.8 Family history of malignant neoplasm of other organs or systems; Z87.442 Personal history of urinary calculi; Z96.641 Presence of right artificial hip joint; Z87.891 Personal history of nicotine dependence; F12.10 Cannabis abuse, uncomplicated; Z79.899 Other long term (current) drug therapy
CPT/HCPCS: 45380

== ENCOUNTER 2018-03-13 08:05 | Day surgery (SDC) | payer MEDICAID ==
[2018-03-13 08:35] LABS: HEMATOCRIT 41.5 % (36.0-47.0); HEMOGLOBIN 14.4 g/dl (12.0-15.5); MEAN CORPUSCULAR HEMOGLOBIN 30.3 pg (27.0-33.0); MEAN CORPUSCULAR HGB CONC 34.7 g/dl (32.0-36.5); MEAN CORPUSCULAR VOLUME 87.4 fl (80.0-96.0); PLATELET COUNT, AUTOMATED 352 10^3/uL (150-450); RED BLOOD COUNT 4.75 10^6/uL (4.00-5.40); RED CELL DISTRIBUTION WIDTH 13.3 % (11.5-14.5); WHITE BLOOD COUNT 9.1 10^3/uL (4.0-10.0)
[2018-03-13] MEDS: LR 1,000 ML IV ×2 (08:45→11:18)
[2018-03-13 08:57] LABS: ALBUMIN 3.8 GM/DL (3.2-5.2); ALBUMIN/GLOBULIN RATIO 1.23 (1.00-1.93); ALKALINE PHOSPHATASE 101 U/L (45-117); ALT/SGPT 22 U/L (12-78); ANION GAP 8 MEQ/L (8-16); AST/SGOT 16 U/L (7-37); BILIRUBIN,TOTAL 0.4 MG/DL (0.2-1.0); BLOOD UREA NITROGEN 14 MG/DL (7-18); CALCIUM LEVEL 9.1 MG/DL (8.5-10.1); CARBON DIOXIDE LEVEL 24 MEQ/L (21-32); CHLORIDE LEVEL 111 MEQ/L (98-107); CREATININE FOR GFR 0.58 MG/DL (0.55-1.30); GLOMERULAR FILTRATION RATE > 60.0 (>51); GLUCOSE, FASTING 110 MG/DL (70-100); POTASSIUM SERUM 4.3 MEQ/L (3.5-5.1); SODIUM LEVEL 143 MEQ/L (136-145); TOTAL PROTEIN 6.9 GM/DL (6.4-8.2)
[2018-03-13] MEDS ORDERED: PROPOFOL 200 MG/20 ML VIAL As Ordered (09:37)
[2018-03-13] MEDS ORDERED: ROCURONIUM BROMIDE 50 MG/5 ML VIAL As Ordered (09:37)
[2018-03-13] MEDS ORDERED: fentaNYL 100 MCG/2 ML INJECTION (J3010) As Ordered ×2 (09:38→10:42)
[2018-03-13] MEDS ORDERED: MIDAZOLAM INJ 2 MG/2 ML VIAL (J2250) As Ordered (09:38)
[2018-03-13] MEDS ORDERED: LIDOCAINE 2% INJ 100 MG/5 ML SDV (FOR ANES.) As Ordered (09:55)
[2018-03-13] MEDS ORDERED: LIDOCAINE W/EPINEPHRINE 1% 20ML VIAL As Ordered (09:55)
[2018-03-13] MEDS ORDERED: GLYCOPYRROLATE INJ 0.2 MG/ML 2 ML VIAL As Ordered ×2 (10:46)
[2018-03-13] MEDS ORDERED: dexameTHASONE 4 MG/ML 1ML VIAL (J1100) As Ordered (10:51)
[2018-03-13] MEDS ORDERED: ONDANSETRON 4MG/2ML VIAL (J2405) As Ordered (10:51)
[2018-03-13] MEDS ORDERED: METOCLOPRAMIDE INJ 10MG/2ML VIAL (J2765) As Ordered (10:51)
[2018-03-13] MEDS ORDERED: NORCO, ANEXSIA 5/325MG TABLET (HYDROcodone/ACETAMINOPHEN) PO (11:30)
[2018-03-13] MEDS ORDERED: ONDANSETRON 4MG/2ML VIAL (J2405) IV (11:30)
[2018-03-13] MEDS: PERCOCET 5MG/325MG TAB PO ×2 (11:34→12:02)
[2018-03-13] MEDS: fentaNYL 100 MCG/2 ML INJECTION (J3010) IV ×4 (11:36→11:54)
== END 2018-03-13 14:16 | disposition home or self-care (01) ==
LOC: M SDC 08:05
DX: K42.0 Umbilical hernia with obstruction, without gangrene (principal); K43.9 Ventral hernia without obstruction or gangrene; E78.00 Pure hypercholesterolemia, unspecified; J44.9 Chronic obstructive pulmonary disease, unspecified; M12.9 Arthropathy, unspecified; M54.5 Low back pain; F12.90 Cannabis use, unspecified, uncomplicated; N83.209 Unspecified ovarian cyst, unspecified side; E66.9 Obesity, unspecified; Z68.36 Body mass index [BMI] 36.0-36.9, adult; Z79.899 Other long term (current) drug therapy; Z96.641 Presence of right artificial hip joint; Z87.891 Personal history of nicotine dependence; Z78.0 Asymptomatic menopausal state
CPT/HCPCS: 49653

== ENCOUNTER 2018-09-18 06:03 | Emergency (ER) | payer MEDICAID ==
[2018-09-18] MEDS: PERCOCET 5MG/325MG TAB PO (07:38)
== END 2018-09-18 08:21 | disposition home or self-care (01) ==
LOC: M ED 06:03
DX: K04.7 Periapical abscess without sinus (principal); S46.812A Strain of other muscles, fascia and tendons at shoulder and upper arm level, left arm, initial encounter; X58.XXXA Exposure to other specified factors, initial encounter; Y92.9 Unspecified place or not applicable; Y93.89 Activity, other specified; Y99.9 Unspecified external cause status; J30.2 Other seasonal allergic rhinitis; Z96.649 Presence of unspecified artificial hip joint; Z79.899 Other long term (current) drug therapy
CPT/HCPCS: 99283

== ENCOUNTER → 2019-01-14 | Outpatient (RCR) | payer MEDICAID ==
[~2019-01-14] MED LIST changes: +AMOX500T; +ATOR40TA75; -BUPIVACAINE HCL 0.25% 10 ML VIAL As Ordered ONE; -BUPIVACAINE HCL 0.25% 30 ML VIAL As Ordered ONE; +COMBAER6 INH; +CYCL5TAB PO; +LORA-243 PO; +NORCOTAB PO; +PROAAER10; -TRIAMCINOLONE ACETONIDE SUSP 40 MG/ML VIAL (J3301) As Ordered ONE; +VITA400C7 PO; +VITA50005; -diazePAM 5 MG TAB As Ordered ONE; -oxyCODONE 5MG TAB As Ordered ONE
== END | disposition home or self-care (01) ==
LOC: M PT 12-22 09:58
PROVIDERS: ATTEND Orthopaedic Surgery
DX: Z47.89 Encounter for other orthopedic aftercare (principal); M50.30 Other cervical disc degeneration, unspecified cervical region; M47.892 Other spondylosis, cervical region; M19.012 Primary osteoarthritis, left shoulder

== ENCOUNTER 2019-01-28 10:10 | Outpatient (RCR) | payer MEDICAID | END 2019-02-14 | LOC: M PT 10:10 | PROVIDERS: ATTEND Orthopaedic Surgery | DX: Z47.89 Encounter for other orthopedic aftercare (principal); M50.30 Other cervical disc degeneration, unspecified cervical region; M47.892 Other spondylosis, cervical region; M19.012 Primary osteoarthritis, left shoulder ==

== ENCOUNTER → 2019-02-16 | Outpatient (REF) | payer MEDICAID ==
[~2019-02-16] MED LIST changes: +HYDR-3715 PO; -NORCOTAB PO
[2019-02-16 13:36] LABS: SOURCE, BODY FLUID RT KNEE; SYNOVIAL FLUID COLOR YELLOW (YELLOW)
[2019-02-16 13:51] LABS: SOURCE, BODY FLUID GLUCOSE RT KNEE; SOURCE, BODY FLUID URIC ACID RT KNEE; URIC ACID, BODY FLUID 3.5 MG/DL (NOT ESTABLISHED)
[2019-02-16 14:30] LABS: CRYSTALS, BODY FLUID CA PYROPHOSPHATE (NONE SEEN); SOURCE, BODY FLUID CRYSTALS RT KNEE
[2019-02-16 15:15] LABS: BODY FLUID RHEUMATOID SCREEN NEGATIVE (NEGATIVE); MUCIN CLOT TEST 3+ (4+)
== END ==
LOC: M LAB REF 13:09
PROVIDERS: ATTEND Orthopaedic Surgery
DX: M17.11 Unilateral primary osteoarthritis, right knee (principal)

== ENCOUNTER → 2019-04-21 | Outpatient (CLI) | payer MEDICAID ==
[2019-04-21 10:06] LABS: BASO % 0.5 % (0.0-1.0); EOS # 0.1 10^3/uL (0.0-0.50); EOS % 1.2 % (0.0-3.0); HEMATOCRIT 38.8 % (36.0-47.0); HEMOGLOBIN 13.1 g/dl (12.0-15.5); LYMPH # 2.1 10^3/uL (1.5-4.5); MEAN CORPUSCULAR HGB CONC 33.8 g/dl (32.0-36.5); MONO # 0.6 10^3/uL (0.0-0.8); MONO % 7.1 % (0.0-5.0); NEUTROPHILS # 5.5 10^3/uL (1.8-7.7); NEUTROPHILS % 65.8 % (36.0-66.0); PLATELET COUNT, AUTOMATED 367 10^3/uL (150-450); RED BLOOD COUNT 4.36 10^6/uL (4.00-5.40); WHITE BLOOD COUNT 8.3 10^3/uL (4.0-10.0)
[2019-04-21 10:48] LABS: ALBUMIN 3.7 GM/DL (3.2-5.2); ALT/SGPT 20 U/L (12-78); BILIRUBIN,TOTAL 0.3 MG/DL (0.2-1.0); BLOOD UREA NITROGEN 19 MG/DL (7-18); CALCIUM LEVEL 9.4 MG/DL (8.5-10.1); CARBON DIOXIDE LEVEL 24 MEQ/L (21-32); CHLORIDE LEVEL 107 MEQ/L (98-107); CHOLESTEROL LEVEL 172 MG/DL (<200); CHOLESTEROL RISK RATIO 2.915 (<5); CREATININE FOR GFR 0.54 MG/DL (0.55-1.30); FREE T4 0.94 NG/DL (0.76-1.46); GLOMERULAR FILTRATION RATE > 60.0 (>51); GLUCOSE, FASTING 106 MG/DL (70-100); HDL CHOLESTEROL 59 MG/DL (>40); LDL CHOLESTEROL 98 MG/DL (<100); NON-HDL-C 113 MG/DL; POTASSIUM SERUM 4.2 MEQ/L (3.5-5.1); SODIUM LEVEL 139 MEQ/L (136-145); TOTAL PROTEIN 6.8 GM/DL (6.4-8.2); TRIGLYCERIDES LEVEL 75 MG/DL (<150)
[2019-04-21 11:01] LABS: TOTAL 25(OH) VITAMIN D 58.8 NG/ML (30.0-100.0)
== END ==
LOC: M LAB 09:15
PROVIDERS: ATTEND Nurse Practitioner Family
DX: R53.83 Other fatigue (principal); I10 Essential (primary) hypertension; E78.2 Mixed hyperlipidemia; E55.9 Vitamin D deficiency, unspecified

== ENCOUNTER 2019-05-16 18:56 | Emergency (ER) | payer MEDICAID ==
[~2019-05-16] VITALS: Ht 149.9 cm; Wt 65.9 kg
[2019-05-16] MEDS ORDERED: ONDANSETRON 4MG/2ML VIAL (J2405) IV ONE (19:30)
[2019-05-16] MEDS ORDERED: KETOROLAC 30 MG/ML VIAL (J1885) IV ONE (19:30)
[2019-05-16 19:59] LABS: BASO # 0.1 10^3/uL (0.0-0.2); BASO % 0.3 % (0.0-1.0); EOS % 0.1 % (0.0-3.0); HEMATOCRIT 41.6 % (36.0-47.0); HEMOGLOBIN 14.1 g/dl (12.0-15.5); LYMPH # 1.4 10^3/uL (1.5-4.5); LYMPH % 8.4 % (24.0-44.0); MEAN CORPUSCULAR HEMOGLOBIN 30.5 pg (27.0-33.0); MEAN CORPUSCULAR HGB CONC 33.9 g/dl (32.0-36.5); MEAN CORPUSCULAR VOLUME 89.8 fl (80.0-96.0); MONO # 0.9 10^3/uL (0.0-0.8); MONO % 5.5 % (0.0-5.0); NEUTROPHILS # 14.5 10^3/uL (1.8-7.7); NEUTROPHILS % 85.3 % (36.0-66.0); PLATELET COUNT, AUTOMATED 386 10^3/uL (150-450); RED BLOOD COUNT 4.63 10^6/uL (4.00-5.40)
--- NOTE | 2019-05-16 19:59 | REP ---
Clinical: Right flank pain. Technique: Axial noncontrast images from the lung bases to the pubic symphysis with coronal and sagittal re-formations. Findings: Mild acute right-sided obstructive uropathy with perinephric and periureteral stranding and hydronephrosis secondary to a 6 mm obstructing calculus at the ureteropelvic junction (images 65-66). 2 mm nonobstructing right renal calculus also identified. The left kidney/ureter and bladder appear normal. Liver, spleen, pancreas, gallbladder, and bilateral adrenal glands are normal. The enteric system is without obstruction or acute inflammatory process. Sigmoid diverticula noted without acute diverticulitis. Pelvis demonstrates collapsed normal bladder and age-appropriate uterus/adnexa. No ascites. No free air. No adenopathy. Abdominal aorta without aneurysm. Musculoskeletal structures demonstrate age-related changes and right hip prosthesis. Impression: 1. Mild acute right-sided obstructive uropathy with a 6 mm obstructing calculus in the ureteropelvic junction. 2 mm nonobstructing calculus in the right kidney. 2. Scattered sigmoid diverticula without acute diverticulitis. Electronically Signed by Marc Singletary MD 05/16/2019 07:51 P
[2019-05-16 20:00] LABS: BLOOD UREA NITROGEN 20 MG/DL (7-18); CALCIUM LEVEL 9.6 MG/DL (8.5-10.1); CARBON DIOXIDE LEVEL 23 MEQ/L (21-32); CHLORIDE LEVEL 109 MEQ/L (98-107); GLOMERULAR FILTRATION RATE > 60.0 (>51); GLUCOSE, FASTING 133 MG/DL (70-100); SODIUM LEVEL 142 MEQ/L (136-145)
[2019-05-16] MEDS ORDERED: KEFL500C17 PO (20:26)
[2019-05-16] MEDS ORDERED: PERC5TAB12 PO (20:26)
[2019-05-16] MEDS ORDERED: ONDA4TAB6 PO (20:26)
[2019-05-16] MEDS ORDERED: FLOM0.4C39 PO (20:26)
[2019-05-16] MEDS ORDERED: TAMSULOSIN 0.4 MG CAP PO ONE (20:30)
[2019-05-16] MEDS ORDERED: OXYCODONE/APAP 5MG/325MG(BULK FOR ED) 1 TABLET PO ONE (20:30)
[2019-05-16] MEDS ORDERED: ONDANSETRON 4 MG ORAL DISINTEGRATING TAB (Q0162 PER 1MG) PO ONE (20:30)
[2019-05-16] MEDS ORDERED: CEPHALEXIN 500 MG CAP PO ONE (20:30)
[2019-05-16 20:34] VITALS: BP 159/75
== END 2019-05-16 20:41 | disposition home or self-care (01) ==
LOC: M ED 18:56
DX: N20.1 Calculus of ureter (principal)
CPT/HCPCS: 74176; 80048; 81001; 85025; 96374; 96375; 99284; J1885; J2405; Q0162

== ENCOUNTER → 2019-05-28 | Outpatient (CLI) | payer MEDICAID ==
[~2019-05-28] MED LIST changes: +FLOM0.4C39 PO; +KEFL500C17 PO; +ONDA4TAB6 PO; +PERC5TAB12 PO
--- NOTE | 2019-05-28 10:56 | REPMRS ---
Patient History The patient states she has not had a clinical breast exam in over a year. Family history of unknown cancer at age 50 or over in father, unknown cancer at age 50 or over in paternal grandfather. 3D TOMOSYNTHESIS WAS PERFORMED. [facility] lifetime risk for breast cancer is 12.2%. Digital Mammo Screening Bilat: May 28, 2019 - Exam #: [id number] Bilateral CC and MLO view(s) were taken. Technologist: Paty Lincoln, Technologist Prior study comparison: January 22, 2018, bilateral digital mammo screening bilat performed at [facility]. January 27, 2017, bilateral digital mammo screening bilat performed at [facility]. FINDINGS: There are scattered fibroglandular densities. There has been no change in the appearance of the mammogram from the prior studies. There is a mild amount of residual fibroglandular tissue which is fairly symmetric. There is no interval development of dominant mass, architectural distortion, or clustered microcalcification suggestive of malignancy. Assessment: BI-RADS/ACR category 1 mammogram. Negative Mammogram. Recommendation Routine screening mammogram in 1 year (for women over age 40). This mammogram was interpreted with the aid of an FDA-approved computer-aided dectection system. Electronically Signed By: Mariano Reyes MD 05/28/19 1115
== END ==
LOC: M RAD 09:37
PROVIDERS: ATTEND Physician Assistant Medical
DX: Z12.31 Encounter for screening mammogram for malignant neoplasm of breast (principal)

== ENCOUNTER → 2019-06-10 | Outpatient (REF) | payer MEDICAID ==
[2019-06-10 14:52] LABS: APPEARANCE, URINE CLEAR (CLEAR); BACTERIA, URINE AUTO NEGATIVE (NEGATIVE); BILIRUBIN, URINE AUTO NEGATIVE (NEGATIVE); BLOOD, URINE BLOOD NEGATIVE (NEGATIVE); COLOR, URINE YELLOW (YELLOW); GLUCOSE, URINE (UA) AUTO NEGATIVE (NEGATIVE); KETONE, URINE AUTO NEGATIVE (NEGATIVE); LEUKOCYTE ESTERASE, URINE AUTO NEGATIVE (NEGATIVE); MUCUS, URINE SMALL (NEGATIVE); NITRITE, URINE AUTO NEGATIVE (NEGATIVE); PROTEIN, URINE AUTO NEGATIVE (NEGATIVE); RBC, URINE AUTO 0 /HPF (0-3); SPECIFIC GRAVITY URINE AUTO 1.011 (1.002-1.035); SQUAMOUS EPITHELIAL CELL UR AU 0 /HPF (0-6); UROBILINOGEN, URINE AUTO 0.2 mg/dL (0.0-2.0); WBC, URINE AUTO 1 /HPF (0-3)
== END ==
LOC: M SMT 13:50
PROVIDERS: ATTEND Nurse Practitioner Women's Health
DX: N13.2 Hydronephrosis with renal and ureteral calculous obstruction (principal)

== ENCOUNTER → 2019-06-10 | Outpatient (CLI) | payer MEDICAID ==
--- NOTE | 2019-06-10 11:14 | REP ---
Supine abdomen single AP view: Comparison is the abdomen and pelvis CT dated 05/16/2019. No renal calculi are identified. No ureteral calculi are identified. The bowel gas pattern is normal. There is a right hip arthroplasty. Impression: No calculi are identified. Electronically Signed by Mariano Sesay MD 06/10/2019 11:06 A
== END ==
LOC: M SMT 10:02
PROVIDERS: ATTEND Nurse Practitioner Women's Health
DX: N13.2 Hydronephrosis with renal and ureteral calculous obstruction (principal)

== ENCOUNTER → 2021-10-18 | Outpatient (CLI) | payer MEDICAID ==
--- NOTE | 2021-10-18 11:29 | REPMRS ---
Patient History The patient states she has not had a clinical breast exam in over a year. Patient is postmenopausal and is nulliparous. Family history of unknown cancer at age 50 or over in father, unknown cancer at age 50 or over in paternal grandfather. No Hormone Replacement Therapy Patient states no breast complaints today. Patient has signed MRS History Sheet. Digital Woman Screen Mammo: October 18, 2021 - Exam #: [id number] Bilateral CC and MLO view(s) were taken. Technologist: Aggie Marin, Cutter Finisher Prior study comparison: May 28, 2019, bilateral digital mammo screening bilat, performed at [facility]. January 22, 2018, bilateral digital mammo screening bilat, performed at [facility]. FINDINGS: The breast tissue is almost entirely fat. Screening. Digital screening (2D) mammography was performed bilaterally in the CC and MLO projections. Additionally, breast tomosynthesis (3D mammography) was performed bilaterally in the CC and MLO projections. Todays exam was compared to the prior exam/exams. By history, the patient has no complaints of a palpable breast abnormality or other significant breast complaints. The breasts are unchanged in size and shape. There are no johnathan-soft tissue densities or spiculated masses. There is no internal architectural distortion. Once again, stable benign appearing calcifications are seen.There are no suspicious johnathan-calcific clusters. Skin thickening or nipple retraction is not present. IMPRESSION: BI-RADS Category 2- Benign Findings. There is no evidence of malignant alteration of the breasts. Followup examination recommended in one year. The Volpara volumetric breast density category is A, the breasts are almost entirely fatty. This mammogram was read with the assistance of [facility],an FDA approved computer aided detection system for mammography. The lifetime Tyrer-Cuzick score is 11.2 % Negative x-ray reports should not delay surgical consultation if a dominant or clinically suspicious mass is present. Not all breast cancers can be identified by mammography. Therefore, we recommend that you continue to perform regular breast self-examination and physical examination and then promptly contact your physician of any concerns or changes. Adenosis and dense breasts may obscure an underlying neoplasm. Assessment: BI-RADS/ACR category 2 mammogram. Benign Findings. Recommendation Routine screening mammogram of both breasts in 1 year. Electronically Signed By: Danie Ramsey DO 10/18/21 1123
== END ==
LOC: M WHC 09:43
PROVIDERS: ATTEND Physician Assistant Medical
DX: Z12.31 Encounter for screening mammogram for malignant neoplasm of breast (principal); Z80.9 Family history of malignant neoplasm, unspecified; R92.1 Mammographic calcification found on diagnostic imaging of breast

== ENCOUNTER → 2023-04-25 | Outpatient (CLI) | payer MEDICAID | LOC: M WHC 15:27 | PROVIDERS: ATTEND Physician Assistant | DX: Z12.31 Encounter for screening mammogram for malignant neoplasm of breast (principal) ==

== ENCOUNTER → 2024-05-06 | Outpatient (CLI) | payer MEDICAID ==
[~2024-05-06] MED LIST changes: +ONDA-282 PO; -ONDA4TAB6 PO
== END ==
LOC: M WHC 09:31
PROVIDERS: ATTEND Nurse Practitioner Adult Health
DX: Z12.31 Encounter for screening mammogram for malignant neoplasm of breast (principal)

== ENCOUNTER → 2025-07-15 | Outpatient (CLI) | payer MEDICAID ==
[~2025-07-15] MED LIST changes: -CYCL5TAB PO; +CYCL5TAB4 PO; -FLOM0.4C39 PO; +TAMS-18 PO
== END ==
LOC: M WHC 08:30
DX: Z12.31 Encounter for screening mammogram for malignant neoplasm of breast (principal); R92.313 Mammographic fatty tissue density, bilateral breasts